=== PATIENT | male | born 1965 | race Caucasian/White ===

== ENCOUNTER 2018-12-27 18:08 | Emergency (ER) | payer OTHER ==
[~2018-12-27] VITALS: Ht 185.4 cm; Wt 81.2 kg
[~2018-12-27 18:08] MED LIST: ACID1TAB PO; APIX5TAB PO; CALC-694 PO; CEFD300C3 PO; CYAN10006 PO; DILT180C54 PO; DILT300C51 PO; DOXY100T2 PO; FEXO180T84 PO; FOLI0.4T2 PO; LEVO750T39 PO; MELA1TAB20 PO; METO-370 PO; MULT-517 PO; MULT-974 PO
--- OUTSIDE RECORDS SUMMARY | 2018-12-27 18:16 | XMS REPORT | Clinical Summary ---
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 If you do not see the information that you expected, contact Release of Information in the Health Information Management department at [phone] for further assistance in locating additional records.[facility] Allergies Comments Active Allergy Reactions Severity Noted Date Milk Containing Products DIARRHEA, High 03/07/2016 SHORTNESS OF BREATH, WHEEZING Sulfa (Sulfonamide UNKNOWN Low 03/01/2016 Antibiotics) Medications End Date Status Medication Sig Dispensed Refills Start Date Active calcium carbonate/vitamin Take 1 Tab by 0 D-3 (OSCAL-500+D) 1250 mouth daily. mg/200 unit tablet Calcium Carb 1250mg delivers 500mg elemental Ca Active fexofenadine(+) (IVONNE) Take 180 mg 0 180 mg tablet by mouth daily. Active folic acid 400 mcg tablet Take 400 mcg 0 by mouth daily. Active melatonin 10 mg tab Take 10 mg by 0 mouth at bedtime daily. Active PV W-O CJ/FERROUS Take 1 Tab by 0 FUMARATE/FA (M-VIT PO) mouth. Active metoprolol XL (TOPROL XL) Take 0.5 Tabs 90 Tab 3 50 mg tabletIndications: by mouth 6 Atrial flutter, daily. unspecified type (HCC) Active ALBUTEROL IN Inhale by 0 mouth into the lungs as Needed. Active Problems Problem Noted Date Atrial flutter 02/17/2016 Overview: 03/07/16 CTI ablation with termination of the flutter and bidirectional block (Dr. Garzon) Family History Medical History Relation Name Comments Cancer Father Stroke Maternal Grandmother Stroke Paternal Grandfather Relation Name Status Comments Father pancreatic cancer (Age 75) Maternal Grandfather Maternal Grandmother (Age 75) Mother Alive Paternal Grandfather (Age 84) Paternal Grandmother Social History Date Tobacco Use Types Packs/Day Years Used Never Smoker Smokeless Tobacco: Never Used Alcohol Use Drinks/Week oz/Week Comments No Sex Assigned at Date Recorded Not on file Industry Job Start Date Occupation Not on file Not on file Not on file Travel End Travel History Travel Start No recent travel history available. Last Filed Vital Signs Time Taken Vital Sign Reading 05/24/2016 7:28 AM CDT Blood Pressure 122/80 05/24/2016 7:28 AM CDT Pulse 59 03/08/2016 9:32 AM CDT Temperature 36.7 C (98.1 F) - Respiratory Rate - 03/08/2016 9:32 AM CDT Oxygen Saturation 99% - Inhaled Oxygen - Concentration 05/24/2016 7:28 AM CDT Weight 83.5 kg (184 lb) 05/24/2016 7:28 AM CDT Height 185.4 cm (6' 1") 05/24/2016 7:28 AM CDT Body Mass Index 24.28 Plan of Treatment Health Maintenance Due Date Last Done Comments PHYSICAL (COMPREHENSIVE) 1973 EXAM HIV SCREENING 1981 DTAP/TDAP VACCINES (1 - 01/02/1984 Tdap) COLORECTAL CANCER 01/02/2016 SCREENING SHINGLES RECOMBINANT 01/02/2016 VACCINE (1 of 2) INFLUENZA VACCINE 04/10/2019 Results Not on filefrom Last 3 Months Insurance Type Payer Benefit Subscriber ID Effective Phone Address Plan / Dates Group HMO AETNA AETNA xxxxxxxxx [id number] GENERIC resent Advance Directives Patient has advance care planning documents, and code status on file. For more information, please contact: [facility] [address] [place] [address] Date Inactivated Comments Code Status Date Activated 03/08/2016 11:46 AM Full Code 03/07/2016 7:33 AM Provider has discussed Code Status No, more discussion w/Patient or Family? needed
--- OUTSIDE RECORDS SUMMARY | 2018-12-27 18:17 | XMS REPORT | CCD ---
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 Name Role Phone PP Unavailable CCM Unavailable Summary Purpose Interface Exchange Insurance Providers Payer name Policy type / Coverage type Covered libertarian ID Effective Begin Date Effective End Date [employer] Commercial Insurance [id number] Unknown Family history Father Diagnosis Age At Onset Hypertension Unknown Hyperlipidemia Unknown Arthritis Unknown Coronary Artery Disease Unknown Social History Social History Element Codes Description Effective Dates Marital status Unknown Michelle 11/17/2015 Number of children Unknown 0 11/17/2015 Allergies, Adverse Reactions, Alerts Substance Reaction Codes Entered Date Inactivated Date Status SULFA (SULFONAMIDES) diarrhea Unknown 11/17/2015 No Inactive Date Active Past Medical History Illness Codes Condition Status Onset Date Resolved Date Encounter for general adult medical examination without abnormal findings ICD-9: V70.0 ICD-10: Z00.00 Active 11/16/2015 Unknown Paroxysmal atrial fibrillation ICD-9: 427.31 ICD-10: I48.0 Active 02/29/2016 Unknown Other acute sinusitis ICD-9: 461.8 ICD-10: J01.80 Active 05/22/2017 Unknown Other allergic rhinitis ICD-9: 477.8 ICD-10: J30.89 Active 05/22/2017 Unknown Acute laryngopharyngitis ICD-9: 465.0 ICD-10: J06.0 Active 11/30/2016 Unknown Other malaise ICD-9: 780.79 ICD-10: R53.81 Active 11/30/2016 Unknown Myalgia ICD-9: 729.1 ICD-10: M79.1 Active 02/15/2016 Unknown Other specified cardiac arrhythmias ICD-9: 427.89 ICD-10: I49.8 Active 02/15/2016 Unknown Palpitations ICD-9: 785.1 ICD-10: R00.2 Active 02/15/2016 Unknown Problems Condition Codes Effective Dates Condition Status Encounter for general adult medical examination without abnormal findings ICD-9: V70.0 ICD-10: Z00.00 11/16/2015 Active Paroxysmal atrial fibrillation ICD-9: 427.31 ICD-10: I48.0 02/29/2016 Active Other acute sinusitis ICD-9: 461.8 ICD-10: J01.80 05/22/2017 Active Other allergic rhinitis ICD-9: 477.8 ICD-10: J30.89 05/22/2017 Active Acute laryngopharyngitis ICD-9: 465.0 ICD-10: J06.0 11/30/2016 Active Other malaise ICD-9: 780.79 ICD-10: R53.81 11/30/2016 Active Myalgia ICD-9: 729.1 ICD-10: M79.1 02/15/2016 Active Other specified cardiac arrhythmias ICD-9: 427.89 ICD-10: I49.8 02/15/2016 Active Palpitations ICD-9: 785.1 ICD-10: R00.2 02/15/2016 Active Medications Medication Codes Instructions Start Date Stop Date Status Fill Instructions ProAir HFA 90 mcg/actuation aerosol inhaler RxNorm: 7707376 INHALE 2 PUFFS BY MOUTH EVERY 6 HOURS NEEDED 12/17/2018 06/14/2019 Active N O T I C E PRESCRIPTION PREVIOUSLY AUTHORIZED BY DOCTOR:ALAINA PETTY Levaquin 500 mg tablet RxNorm: 681905 1 Tablet(s) PO daily 08/201705/28/2017 Inactive Augmentin 500 mg-125 mg tablet RxNorm: 597796 1 Tablet(s) PO TID 11/30/2016 12/09/2016 Inactive Cartia XT 300 mg capsule,extended release RxNorm: 756624 1 Capsule(s) PO daily 03/02/2016 03/31/2016 Inactive prednisone 20 mg tablet RxNorm: 850583 3 Tablet(s) PO daily 05/201602/21/2016 Inactive Xarelto 20 mg tablet RxNorm: 3677694 1 Tablet(s) PO daily with the evening meal 02/17/2016 02/28/2016 Inactive prednisone 20 mg tablet RxNorm: 658343 3 Tablet(s) PO daily 05/201602/16/2016 Inactive Nexium 20 mg capsule,delayed release RxNorm: 273083 1 Capsule(s) PO BID 02/17/2016 03/17/2016 Inactive Nexium 20 mg capsule,delayed release RxNorm: 904495 1 Capsule(s) PO BID 02/17/2016 02/16/2016 Inactive Xarelto 20 mg tablet RxNorm: 0546160 1 Tablet(s) PO daily with the evening meal 02/17/2016 02/16/2016 Inactive ProAir HFA 90 mcg/actuation aerosol inhaler RxNorm: 7060322 INHALE 2 PUFFS BY MOUTH EVERY 6 HOURS NEEDED 04/27/2015 11/21/2016 Inactive N O T I C E PRESCRIPTION PREVIOUSLY AUTHORIZED BY DOCTOR:ALAINA PETTY ProAir HFA 90 mcg/actuation aerosol inhaler RxNorm: 9306701 1-2 Puff(s) INH Q4 PRN 04/27/2015 04/26/2015 Inactive Vitamin B-12 oral RxNorm: 42798 oral No Start Date Active folic acid oral RxNorm : 4511 oral No Start Date Active Men's Multi-Vitamin tablet RxNorm: 1 Tablet(s) PO daily No Start Date Active Calcium + Vitamin D oral RxNorm: 7080190 oral No Start Date Active Tiffany oral RxNorm: 649757 oral No Start Date Active melatonin oral RxNorm : 6711 oral No Start Date Active Levaquin 750 mg tablet RxNorm: 599577 1 Tablet(s) PO daily No Start Date 11/21/2016 Inactive metoprolol tartrate 50 mg tablet RxNorm: 593825 1 Tablet(s) PO daily No Start Date 11/21/2016 Inactive cefdinir 300 mg capsule RxNorm: 795245 1 Capsule(s) PO BID No Start Date 11/21/2016 Inactive Doxy 100 mg capsule RxNorm: 626880 oral No Start Date 11/21/2016 Inactive Eliquis 5 mg tablet RxNorm: 7899791 1 Tablet(s) PO BID No Start Date 11/21/2016 Inactive Medication Administered No Medication Administered data Immunizations Vaccine Codes Date Status Influenza CVX: 141 08/05/2018 completed SHINGARIX CVX: 121 04/15/2018 completed Zoster CVX: 121 12/07/2017 completed Influenza CVX: 141 03/10/2015 completed Assessments Condition Codes Effective Dates Encounter for general adult medical examination without abnormal findings ICD-10: Z00.00 ICD-9: V70.0 12/17/2018 Other acute sinusitis ICD-10: J01.80 ICD-9: 461.8 05/22/2017 Other allergic rhinitis ICD-10: J30.89 ICD-9: 477.8 05/22/2017 Other malaise ICD-10: R53.81 ICD-9: 780.79 11/30/2016 Acute laryngopharyngitis ICD-10: J06.0 ICD-9: 465.0 11/30/2016 Paroxysmal atrial fibrillation ICD-10: I48.0 ICD-9: 427.31 03/01/2016 Palpitations ICD-10: R00.2 ICD-9: 785.1 02/16/2016 Other specified cardiac arrhythmias ICD-10: I49.8 ICD-9: 427.89 02/16/2016 Myalgia ICD-10: M79.1 ICD-9: 729.1 02/16/2016 Reason For Visit Reason For Visit Effective Dates Notes well man exam (40-65 years) 12/17/2018 well man exam (40-65 years) 11/28/2017 sinus congestion 05/22/2017 sinus congestion 11/30/2016 well man exam (40-65 years) 11/22/2016 Hospital Follow Up 03/01/2016 palpitations 02/16/2016 mole check 11/17/2015 Results Observation Observation Code Item Item Code Result Date Comp Metabolic Mqt824 NA 140 mEq/L 12/17/2018 Comp Metabolic Kly788 K 4.4 mEq/L 12/17/2018 Comp Metabolic Fti829 CL 106 mEq/L 12/17/2018 Comp Metabolic Bef871 CO2 28.0 mEq/L 12/17/2018 Comp Metabolic Asb544 ANION GAP 10 12/17/2018 Comp Metabolic Pdy660 GLUCOSE 92 mg/dL 12/17/2018 Comp Metabolic Adl604 Creat 0.9 mg/dL 12/17/2018 Comp Metabolic Tim186 eGFR 90 ml/min/1.73m2 12/17/2018 Comp Metabolic Foi795 BUN 19 mg/dL 12/17/2018 Comp Metabolic Cba418 B/C Ratio 20.4 Ratio 12/17/2018 Comp Metabolic Xjn343 CALCIUM 9.7 mg/dL 12/17/2018 Comp Metabolic Srq376 ALK PHOS 61 U/L 12/17/2018 Comp Metabolic Sfx651 AST(SGOT) 25 U/L 12/17/2018 Comp Metabolic Znp498 ALT(SGPT) 20 U/L 12/17/2018 Comp Metabolic Mcj531 BILI T 1.1 mg/dL 12/17/2018 Comp Metabolic Lyh016 ALBUMIN 4.3 g/dL 12/17/2018 Comp Metabolic Orr493 TPRO 6.7 g/dL 12/17/2018 Comp Metabolic Fkj036 GLOB 2.4 g/dL 12/17/2018 Comp Metabolic Ybr243 A/G Ratio 1.8 Ratio 12/17/2018 Comp Metabolic Drz883 Osmo 281 mOsmo 12/17/2018 Lipid Ord30 CHOL 215 mg/dL 12/17/2018 Lipid Ord30 HDL 64.0 mg/dl 12/17/2018 Lipid Ord30 TRIG 65 mg/dL 12/17/2018 Lipid Ord30 LDL 138 mg/dL 12/17/2018 Lipid Ord30 C/HDL 3.4 Ratio 12/17/2018 Cbc With Differential Ord2 WBC 4.45 K/ul 12/17/2018 Cbc With Differential Ord2 RBC 4.47 M/ul 12/17/2018 Cbc With Differential Ord2 HGB 13.8 g/dl 12/17/2018 Cbc With Differential Ord2 HCT 40.8 % 12/17/2018 Cbc With Differential Ord2 Neut% 56.2 % 12/17/2018 Cbc With Differential Ord2 MCV 91.3 fl 12/17/2018 Cbc With Differential Ord2 Lymph% 32.6 % 12/17/2018 Cbc With Differential Ord2 MCH 30.9 pg 12/17/2018 Cbc With Differential Ord2 Mayes% 7.4 % 12/17/2018 Cbc With Differential Ord2 MCHC 33.8 pg 12/17/2018 Cbc With Differential Ord2 Eos% 2.9 % 12/17/2018 Cbc With Differential Ord2 Baso% 0.9 % 12/17/2018 Cbc With Differential Ord2 PLT 261 K/ul 12/17/2018 Cbc With Differential Ord2 RDW 13.2 % 12/17/2018 Cbc With Differential Ord2 Neut ABS# 2.50 K/ul 12/17/2018 Cbc With Differential Ord2 Lymph ABS# 1.45 K/ul 12/17/2018 Cbc With Differential Ord2 Mayes ABS# 0.3 K/ul 12/17/2018 Cbc With Differential Ord2 Eos ABS# 0.1 K/ul 12/17/2018 Cbc With Differential Ord2 Baso ABS# 0.0 K/ul 12/17/2018 Tsh Ord6 TSH (3rd IS) 1.16 uIU/mL 12/17/2018 Lipid Ord30 CHOL 207 mg/dL 11/29/2017 Lipid Ord30 HDL 75.0 mg/dl 11/29/2017 Lipid Ord30 TRIG 56 mg/dL 11/29/2017 Lipid Ord30 LDL 121 mg/dL 11/29/2017 Lipid Ord30 C/HDL 2.8 Ratio 11/29/2017 Cbc With Differential Ord2 WBC 4.52 K/ul 11/29/2017 Cbc With Differential Ord2 RBC 4.42 M/ul 11/29/2017 Cbc With Differential Ord2 HGB 13.9 g/dl 11/29/2017 Cbc With Differential Ord2 HCT 40.1 % 11/29/2017 Cbc With Differential Ord2 Neut% 53.0 % 11/29/2017 Cbc With Differential Ord2 MCV 90.7 fl 11/29/2017 Cbc With Differential Ord2 Lymph% 36.1 % 11/29/2017 Cbc With Differential Ord2 MCH 31.4 pg 11/29/2017 Cbc With Differential Ord2 Mayes% 8.4 % 11/29/2017 Cbc With Differential Ord2 MCHC 34.7 pg 11/29/2017 Cbc With Differential Ord2 Eos% 1.8 % 11/29/2017 Cbc With Differential Ord2 PLT 230 K/ul 11/29/2017 Cbc With Differential Ord2 Baso% 0.7 % 11/29/2017 Cbc With Differential Ord2 RDW 12.9 % 11/29/2017 Cbc With Differential Ord2 Neut ABS# 2.40 K/ul 11/29/2017 Cbc With Differential Ord2 Lymph ABS# 1.63 K/ul 11/29/2017 Cbc With Differential Ord2 Mayes ABS# 0.4 K/ul 11/29/2017 Cbc With Differential Ord2 Eos ABS# 0.1 K/ul 11/29/2017 Cbc With Differential Ord2 Baso ABS# 0.0 K/ul 11/29/2017 Comp Metabolic Ufb746 NA 141 mEq/L 11/29/2017 Comp Metabolic Cec874 K 4.0 mEq/L 11/29/2017 Comp Metabolic Fhs058 CL 106 mEq/L 11/29/2017 Comp Metabolic Gcz492 CO2 26.0 mEq/L 11/29/2017 Comp Metabolic Fxo944 ANION GAP 13 11/29/2017 Comp Metabolic Fib155 GLUCOSE 79 mg/dL 11/29/2017 Comp Metabolic Vqp219 Creat 1.0 mg/dL 11/29/2017 Comp Metabolic Rgb568 eGFR 89 ml/min/1.73m2 11/29/2017 Comp Metabolic Nal330 BUN 20 mg/dL 11/29/2017 Comp Metabolic Emi940 B/C Ratio 21.1 Ratio 11/29/2017 Comp Metabolic Cnz844 CALCIUM 9.5 mg/dL 11/29/2017 Comp Metabolic Ubk270 ALK PHOS 67 U/L 11/29/2017 Comp Metabolic Znx544 AST(SGOT) 26 U/L 11/29/2017 Comp Metabolic Onk187 ALT(SGPT) 25 U/L 11/29/2017 Comp Metabolic Tlr817 BILI T 1.2 mg/dL 11/29/2017 Comp Metabolic Tug847 ALBUMIN 4.2 g/dL 11/29/2017 Comp Metabolic Qhu247 TPRO 6.7 g/dL 11/29/2017 Comp Metabolic Nsk899 GLOB 2.5 g/dL 11/29/2017 Comp Metabolic Ymu304 A/G Ratio 1.7 Ratio 11/29/2017 Comp Metabolic Mtw670 Osmo 283 mOsmo 11/29/2017 Tsh Ord6 TSH (3rd IS) 0.82 uIU/mL 11/29/2017 C A/B FLU [id number] Influenza A Scr Negative 11/30/2016 C A/B FLU [id number] Influenza B Scr Negative 11/30/2016 Hepatic Trj829 ALBUMIN 4.1 g/dL 04/04/2016 Hepatic Hds744 TPRO 6.7 g/dL 04/04/2016 Hepatic Yqe485 GLOB 2.6 g/dL 04/04/2016 Hepatic Ihu611 A/G Ratio 1.5 Ratio 04/04/2016 Hepatic Geb975 ALK PHOS 61 U/L 04/04/2016 Hepatic Lbr073 ALT(SGPT) 22 U/L 04/04/2016 Hepatic Gja137 AST(SGOT) 21 U/L 04/04/2016 Hepatic Hcl505 BILI T 0.9 mg/dL 04/04/2016 Hepatic Akl744 BILI D 0.2 mg/dL 04/04/2016 Hepatic Dqu929 BILI I 0.7 mg/dL 04/04/2016 Cbc With Differential Ord2 WBC 3.19 K/ul 04/04/2016 Cbc With Differential Ord2 RBC 4.41 M/ul 04/04/2016 Cbc With Differential Ord2 HGB 13.8 g/dl 04/04/2016 Cbc With Differential Ord2 HCT 39.5 % 04/04/2016 Cbc With Differential Ord2 Neut% 41.0 % 04/04/2016 Cbc With Differential Ord2 MCV 89.6 fl 04/04/2016 Cbc With Differential Ord2 Lymph% 46.1 % 04/04/2016 Cbc With Differential Ord2 MCH 31.3 pg 04/04/2016 Cbc With Differential Ord2 Mayes% 8.5 % 04/04/2016 Cbc With Differential Ord2 MCHC 34.9 pg 04/04/2016 Cbc With Differential Ord2 Eos% 3.1 % 04/04/2016 Cbc With Differential Ord2 PLT 260 K/ul 04/04/2016 Cbc With Differential Ord2 Baso% 1.3 % 04/04/2016 Cbc With Differential Ord2 RDW 13.6 % 04/04/2016 Cbc With Differential Ord2 Neut ABS# 1.31 K/ul 04/04/2016 Cbc With Differential Ord2 Lymph ABS# 1.47 K/ul 04/04/2016 Cbc With Differential Ord2 Mayes ABS# 0.3 K/ul 04/04/2016 Cbc With Differential Ord2 Eos ABS# 0.1 K/ul 04/04/2016 Cbc With Differential Ord2 Baso ABS# 0.0 K/ul 04/04/2016 Cbc With Differential Ord2 WBC 4.40 K/ul 03/01/2016 Cbc With Differential Ord2 RBC 4.14 M/ul 03/01/2016 Cbc With Differential Ord2 HGB 12.7 g/dl 03/01/2016 Cbc With Differential Ord2 HCT 38.0 % 03/01/2016 Cbc With Differential Ord2 Neut% 52.7 % 03/01/2016 Cbc With Differential Ord2 MCV 91.8 fl 03/01/2016 Cbc With Differential Ord2 Lymph% 34.1 % 03/01/2016 Cbc With Differential Ord2 MCH 30.7 pg 03/01/2016 Cbc With Differential Ord2 Mayes% 9.3 % 03/01/2016 Cbc With Differential Ord2 MCHC 33.4 pg 03/01/2016 Cbc With Differential Ord2 Eos% 2.5 % 03/01/2016 Cbc With Differential Ord2 PLT 694 Result Verified By Repeat Analysis K/ul 03/01/2016 Cbc With Differential Ord2 Baso% 1.4 % 03/01/2016 Cbc With Differential Ord2 RDW 13.4 % 03/01/2016 Cbc With Differential Ord2 Neut ABS# 2.32 K/ul 03/01/2016 Cbc With Differential Ord2 Lymph ABS# 1.50 K/ul 03/01/2016 Cbc With Differential Ord2 Mayes ABS# 0.4 K/ul 03/01/2016 Cbc With Differential Ord2 Eos ABS# 0.1 K/ul 03/01/2016 Cbc With Differential Ord2 Baso ABS# 0.1 K/ul 03/01/2016 Metabolic Ord15 NA 137 mEq/L 03/01/2016 Metabolic Ord15 K 5.1 mEq/L 03/01/2016 Metabolic Ord15 CL 106 mEq/L 03/01/2016 Metabolic Ord15 CO2 26.0 mEq/L 03/01/2016 Metabolic Ord15 GLUCOSE 82 mg/dL 03/01/2016 Metabolic Ord15 BUN 21 mg/dL 03/01/2016 Metabolic Ord15 Creat 0.9 mg/dL 03/01/2016 Metabolic Ord15 B/C Ratio 22.6 Ratio 03/01/2016 Metabolic Ord15 eGFR 91 ml/min/1.73m2 03/01/2016 Metabolic Ord15 Osmo 276 mOsmo 03/01/2016 Metabolic Ord15 ANION GAP 10 03/01/2016 Metabolic Ord15 CALCIUM 9.1 mg/dL 03/01/2016 Magnesium Ord90 Mag 2.1 mg/dL 03/01/2016 Manual Differential Ord52 D-Neutr 62 % 03/01/2016 Manual Differential Ord52 D-Bands 2 % 03/01/2016 Manual Differential Ord52 D-Lymph 27 % 03/01/2016 Manual Differential Ord52 D-Mayes 7 % 03/01/2016 Manual Differential Ord52 D-Eos 2 % 03/01/2016 Manual Differential Ord52 D-1 Plt Increased 03/01/2016 Review of Systems System Result Effective Dates Constitutional No recent illness 2018 Constitutional No chills 12/17/2018 Constitutional No fatigue 12/17/2018 Constitutional No fever 12/17/2018 Constitutional No insomnia 12/17/2018 Constitutional No malaise 12/17/2018 Eyes No blindness 12/17/2018 Eyes No vision change 12/17/2018 Ears/Nose/Throat/Neck No dental pain 05/2019 Ears/Nose/Throat/Neck No dizziness 2018 Ears/Nose/Throat/Neck No dysphagia 2018 Ears/Nose/Throat/Neck No headache 2018 Ears/Nose/Throat/Neck No hearing loss 05/2019 Ears/Nose/Throat/Neck No nasal allergies 12/17/2018 Ears/Nose/Throat/Neck No sore throat 05/2019 Ears/Nose/Throat/Neck No postnasal drip 12/17/2018 Ears/Nose/Throat/Neck No sinus congestion 12/17/2018 Cardiovascular No chest pain/pressure 05/2019 Cardiovascular No dyspnea 12/17/2018 Cardiovascular No edema 12/17/2018 Cardiovascular No exercise intolerance Cardiovascular No fatigue 12/17/2018 Cardiovascular No near-syncope/dizziness 12/17/2018 Respiratory No chest tightness 2018 Respiratory No cough 12/17/2018 Respiratory No dyspnea 12/17/2018 Respiratory No pedal edema 12/17/2018 Gastrointestinal No abdominal pain 2018 Gastrointestinal No constipation 2018 Gastrointestinal No diarrhea 12/17/2018 Gastrointestinal No gastroesophageal reflux 12/17/2018 Gastrointestinal No nausea 12/17/2018 Gastrointestinal No vomiting 12/17/2018 Genitourinary/Nephrology No dysuria 12/17 Genitourinary/Nephrology No nocturia 05/2019 Genitourinary/Nephrology No urinary incontinence 12/17/2018 Musculoskeletal stiffness 12/17/2018 Musculoskeletal No swelling 12/17/2018 Musculoskeletal No muscle weakness 2018 Musculoskeletal No myalgias 12/17/2018 Dermatologic No rash 12/17/2018 Dermatologic No sores 12/17/2018 Dermatologic No scar 12/17/2018 Neurologic No dizziness 12/17/2018 Neurologic No headache 12/17/2018 Neurologic No neck pain 12/17/2018 Neurologic No syncope 12/17/2018 Psychiatric No anxiety 12/17/2018 Psychiatric No depression 12/17/2018 Constitutional No recent illness 2017 Constitutional No chills 11/28/2017 Constitutional No fatigue 11/28/2017 Constitutional No fever 11/28/2017 Constitutional No insomnia 11/28/2017 Constitutional No malaise 11/28/2017 Eyes No blindness 11/28/2017 Eyes No vision change 11/28/2017 Ears/Nose/Throat/Neck No dental pain Ears/Nose/Throat/Neck No dizziness 2017 Ears/Nose/Throat/Neck No dysphagia 2017 Ears/Nose/Throat/Neck No headache 2017 Ears/Nose/Throat/Neck No hearing loss Ears/Nose/Throat/Neck No nasal allergies 11/28/2017 Ears/Nose/Throat/Neck No sore throat Ears/Nose/Throat/Neck No postnasal drip 11/28/2017 Ears/Nose/Throat/Neck No sinus congestion 11/28/2017 Cardiovascular No chest pain/pressure Cardiovascular No dyspnea 11/28/2017 Cardiovascular No edema 11/28/2017 Cardiovascular No exercise intolerance Cardiovascular No fatigue 11/28/2017 Cardiovascular No near-syncope/dizziness 11/28/2017 Respiratory No chest tightness 2017 Respiratory No cough 11/28/2017 Respiratory No dyspnea 11/28/2017 Respiratory No pedal edema 11/28/2017 Gastrointestinal No abdominal pain 2017 Gastrointestinal No constipation 2017 Gastrointestinal No diarrhea 11/28/2017 Gastrointestinal No gastroesophageal reflux 11/28/2017 Gastrointestinal No nausea 11/28/2017 Gastrointestinal No vomiting 11/28/2017 Genitourinary/Nephrology No dysuria 11/28 Genitourinary/Nephrology No nocturia Genitourinary/Nephrology No urinary incontinence 11/28/2017 Musculoskeletal stiffness 11/28/2017 Musculoskeletal No swelling 11/28/2017 Musculoskeletal No muscle weakness 2017 Musculoskeletal No myalgias 11/28/2017 Dermatologic No rash 11/28/2017 Dermatologic No sores 11/28/2017 Dermatologic No scar 11/28/2017 Neurologic No dizziness 11/28/2017 Neurologic No headache 11/28/2017 Neurologic No neck pain 11/28/2017 Neurologic No syncope 11/28/2017 Psychiatric No anxiety 11/28/2017 Psychiatric No depression 11/28/2017 Constitutional recent illness 05/22/2017 Constitutional No chills 05/22/2017 Constitutional No diaphoresis 05/22/2017 Constitutional No fever 05/22/2017 Eyes No eye erythema 05/22/2017 Ears/Nose/Throat/Neck nasal allergies 08/2017 Ears/Nose/Throat/Neck nasal discharge 08/2017 Ears/Nose/Throat/Neck postnasal drip 08/2017 Ears/Nose/Throat/Neck sinus congestion Cardiovascular No chest pain/pressure 08/2017 Cardiovascular No dyspnea 05/22/2017 Respiratory No chest congestion 2016 Respiratory cough 05/22/2017 Respiratory No dyspnea 05/22/2017 Gastrointestinal No abdominal pain 2016 Gastrointestinal No constipation 2016 Gastrointestinal No diarrhea 05/22/2017 Gastrointestinal No nausea 05/22/2017 Gastrointestinal No vomiting 05/22/2017 Dermatologic No rash 05/22/2017 Neurologic No alteration of consciousness 05/22/2017 Neurologic No mental status change 2016 Ears/Nose/Throat/Neck No sore throat 08/2017 Constitutional recent illness 11/30/2016 Constitutional No chills 11/30/2016 Constitutional No diaphoresis 11/30/2016 Eyes No eye erythema 11/30/2016 Ears/Nose/Throat/Neck nasal allergies Ears/Nose/Throat/Neck nasal discharge Ears/Nose/Throat/Neck postnasal drip Cardiovascular No chest pain/pressure Cardiovascular No dyspnea 11/30/2016 Respiratory chest congestion 11/30/2016 Respiratory cough 11/30/2016 Respiratory No dyspnea 11/30/2016 Gastrointestinal No constipation 2016 Gastrointestinal No diarrhea 11/30/2016 Gastrointestinal No nausea 11/30/2016 Gastrointestinal No vomiting 11/30/2016 Dermatologic No rash 11/30/2016 Neurologic No alteration of consciousness 11/30/2016 Neurologic No mental status change 2016 Constitutional No fever 11/30/2016 Ears/Nose/Throat/Neck otalgia 11/30/2016 Constitutional malaise 11/30/2016 Respiratory productive sputum 11/30/2016 Constitutional No recent illness 2016 Constitutional No chills 11/22/2016 Constitutional No fatigue 11/22/2016 Constitutional No fever 11/22/2016 Constitutional No insomnia 11/22/2016 Constitutional No malaise 11/22/2016 Eyes No blindness 11/22/2016 Eyes No vision change 11/22/2016 Ears/Nose/Throat/Neck No dental pain Ears/Nose/Throat/Neck No dizziness 2016 Ears/Nose/Throat/Neck No dysphagia 2016 Ears/Nose/Throat/Neck No headache 2016 Ears/Nose/Throat/Neck No hearing loss Ears/Nose/Throat/Neck No nasal allergies 11/22/2016 Ears/Nose/Throat/Neck No sore throat Ears/Nose/Throat/Neck No postnasal drip 11/22/2016 Ears/Nose/Throat/Neck No sinus congestion 11/22/2016 Cardiovascular No chest pain/pressure Cardiovascular No dyspnea 11/22/2016 Cardiovascular No edema 11/22/2016 Cardiovascular No exercise intolerance Cardiovascular No fatigue 11/22/2016 Cardiovascular No near-syncope/dizziness 11/22/2016 Respiratory No chest tightness 2016 Respiratory No cough 11/22/2016 Respiratory No dyspnea 11/22/2016 Respiratory No pedal edema 11/22/2016 Gastrointestinal No abdominal pain 2016 Gastrointestinal No constipation 2016 Gastrointestinal No diarrhea 11/22/2016 Gastrointestinal No gastroesophageal reflux 11/22/2016 Gastrointestinal No nausea 11/22/2016 Gastrointestinal No vomiting 11/22/2016 Genitourinary/Nephrology No dysuria 11/22 Genitourinary/Nephrology No nocturia Genitourinary/Nephrology No urinary incontinence 11/22/2016 Musculoskeletal No stiffness 11/22/2016 Musculoskeletal No swelling 11/22/2016 Musculoskeletal No muscle weakness 2016 Musculoskeletal No myalgias 11/22/2016 Dermatologic No rash 11/22/2016 Dermatologic No sores 11/22/2016 Dermatologic No scar 11/22/2016 Neurologic No dizziness 11/22/2016 Neurologic No headache 11/22/2016 Neurologic No neck pain 11/22/2016 Neurologic No syncope 11/22/2016 Psychiatric No anxiety 11/22/2016 Psychiatric No depression 11/22/2016 Constitutional No chills 03/01/2016 Constitutional fatigue 03/01/2016 Constitutional No fever 03/01/2016 Constitutional No insomnia 03/01/2016 Eyes No eye erythema 03/01/2016 Eyes No vision change 03/01/2016 Ears/Nose/Throat/Neck No nasal allergies 03/01/2016 Ears/Nose/Throat/Neck No nasal discharge 03/01/2016 Ears/Nose/Throat/Neck No postnasal drip 03/01/2016 Ears/Nose/Throat/Neck No sinus congestion 03/01/2016 Ears/Nose/Throat/Neck No sore throat Cardiovascular No chest pain/pressure Cardiovascular No dyspnea 03/01/2016 Cardiovascular No edema 03/01/2016 Respiratory No chest congestion 2015 Respiratory No cough 03/01/2016 Respiratory No dyspnea 03/01/2016 Gastrointestinal No nausea 03/01/2016 Gastrointestinal No vomiting 03/01/2016 Musculoskeletal No joint complaint 2015 Dermatologic No rash 03/01/2016 Dermatologic No scar 03/01/2016 Neurologic No alteration of consciousness 03/01/2016 Neurologic No mental status change 2015 Psychiatric No anxiety 03/01/2016 Psychiatric No depression 03/01/2016 Cardiovascular arrhythmia 03/01/2016 Constitutional No chills 02/16/2016 Constitutional fatigue 02/16/2016 Constitutional No fever 02/16/2016 Constitutional No insomnia 02/16/2016 Constitutional malaise 02/16/2016 Eyes No eye erythema 02/16/2016 Eyes No vision change 02/16/2016 Ears/Nose/Throat/Neck No headache 2015 Ears/Nose/Throat/Neck No nasal allergies 02/16/2016 Ears/Nose/Throat/Neck No sore throat 04/2016 Ears/Nose/Throat/Neck No postnasal drip 02/16/2016 Ears/Nose/Throat/Neck No sinus congestion 02/16/2016 Cardiovascular No chest pain/pressure 04/2016 Cardiovascular No dyspnea 02/16/2016 Cardiovascular No edema 02/16/2016 Respiratory No cough 02/16/2016 Respiratory No dyspnea 02/16/2016 Respiratory No pedal edema 02/16/2016 Gastrointestinal No nausea 02/16/2016 Gastrointestinal No vomiting 02/16/2016 Dermatologic No rash 02/16/2016 Dermatologic No scar 02/16/2016 Psychiatric No anxiety 02/16/2016 Psychiatric No depression 02/16/2016 Ears/Nose/Throat/Neck No nasal discharge 02/16/2016 Cardiovascular palpitations 02/16/2016 Cardiovascular arrhythmia 02/16/2016 Respiratory No chest congestion 2015 Respiratory No productive sputum 2015 Musculoskeletal myalgias 02/16/2016 Musculoskeletal No joint complaint 2015 Neurologic No alteration of consciousness 02/16/2016 Neurologic No mental status change 2015 Constitutional No recent illness 2015 Constitutional No chills 11/17/2015 Constitutional No fatigue 11/17/2015 Constitutional No fever 11/17/2015 Constitutional No insomnia 11/17/2015 Constitutional No malaise 11/17/2015 Eyes No blindness 11/17/2015 Eyes No vision change 11/17/2015 Ears/Nose/Throat/Neck No dental pain 05/2016 Ears/Nose/Throat/Neck No dizziness 2015 Ears/Nose/Throat/Neck No dysphagia 2015 Ears/Nose/Throat/Neck No headache 2015 Ears/Nose/Throat/Neck No hearing loss 05/2016 Ears/Nose/Throat/Neck No nasal allergies 11/17/2015 Ears/Nose/Throat/Neck No sore throat 05/2016 Ears/Nose/Throat/Neck No postnasal drip 11/17/2015 Ears/Nose/Throat/Neck No sinus congestion 11/17/2015 Cardiovascular No chest pain/pressure 05/2016 Cardiovascular No dyspnea 11/17/2015 Cardiovascular No edema 11/17/2015 Cardiovascular No exercise intolerance Cardiovascular No fatigue 11/17/2015 Cardiovascular No near-syncope/dizziness 11/17/2015 Respiratory No chest tightness 2015 Respiratory No cough 11/17/2015 Respiratory No dyspnea 11/17/2015 Respiratory No pedal edema 11/17/2015 Gastrointestinal No abdominal pain 2015 Gastrointestinal No constipation 2015 Gastrointestinal No diarrhea 11/17/2015 Gastrointestinal No gastroesophageal reflux 11/17/2015 Gastrointestinal No nausea 11/17/2015 Gastrointestinal No vomiting 11/17/2015 Genitourinary/Nephrology No dysuria 11/16 Genitourinary/Nephrology No nocturia 05/2016 Genitourinary/Nephrology No urinary incontinence 11/17/2015 Musculoskeletal No stiffness 11/17/2015 Musculoskeletal No swelling 11/17/2015 Musculoskeletal No muscle weakness 2015 Musculoskeletal No myalgias 11/17/2015 Dermatologic No rash 11/17/2015 Dermatologic No sores 11/17/2015 Dermatologic No scar 11/17/2015 Neurologic No dizziness 11/17/2015 Neurologic No headache 11/17/2015 Neurologic No neck pain 11/17/2015 Neurologic No syncope 11/17/2015 Psychiatric No anxiety 11/17/2015 Psychiatric No depression 11/17/2015 Physical Exam Exam Name System Name Item Name Status Result Effective Dates Notes Full Exam - General 1994 Constitutional general appearance Development: well developed 12/17/2018 None Full Exam - General 1994 Constitutional general appearance Development: appears stated age 0412/17/2018 None Full Exam - General 1994 Constitutional general appearance Hygiene/Attention to Grooming: good hygiene 12/17/2018 None Full Exam - General 1994 Eyes conjunctiva /eyelids Overall: conjunctiva clear 12/17/2018 None Full Exam - General 1994 Eyes conjunctiva /eyelids Overall: cornea clear 12/17/2018 None Full Exam - General 1994 Eyes conjunctiva /eyelids Overall: eyelids normal 12/17/2018 None Full Exam - General 1994 Eyes pupils and irises Overall: pupils equal, round, reactive to light and accomodation 12/17/2018 None Full Exam - General 1994 Ears/Nose/Throat otoscopic exam Overall: external auditory canals clear 12/17/2018 None Full Exam - General 1994 Ears/Nose/Throat otoscopic exam Overall: tympanic membranes clear 12/17/2018 None Full Exam - General 1994 Ears/Nose/Throat lips/teeth/gingiva Overall: benign lips 12/17/2018 None Full Exam - General 1994 Ears/Nose/Throat lips/teeth/gingiva Overall: normal dentition 12/17/2018 None Full Exam - General 1994 Ears/Nose/Throat oral cavity/pharynx/larynx Overall: oral mucosa clear 12/17/2018 None Full Exam - General 1994 Ears/Nose/Throat oral cavity/pharynx/larynx Overall: oropharyngeal mucosa clear 12/17/2018 None Full Exam - General 1994 Ears/Nose/Throat oral cavity/pharynx/larynx Overall: hypopharynx benign 12/17/2018 None Full Exam - General 1994 Ears/Nose/Throat oral cavity/pharynx/larynx Overall: no masses 12/17/2018 None Full Exam - General 1994 Respiratory auscultation Overall: breath sounds clear bilaterally 12/17/2018 None Full Exam - General 1994 Respiratory respiratory effort/rhythm Overall: no retractions 12/17/2018 None Full Exam - General 1994 Respiratory respiratory effort/rhythm Overall: normal rate 12/17/2018 None Full Exam - General 1994 Cardiovascular extremities Overall: no clubbing 12/17/2018 None Full Exam - General 1994 Cardiovascular auscultation of heart Overall: regular rate 12/17/2018 None Full Exam - General 1994 Cardiovascular auscultation of heart Overall: normal heart sounds 12/17/2018 None Full Exam - General 1994 Abdomen abdominal exam Overall: no tenderness 12/17/2018 None Full Exam - General 1994 Abdomen abdominal exam Overall: normal bowel sounds 12/17/2018 None Full Exam - General 1994 Lymphatic neck nodes Overall: anterior cervical chain benign 12/17/2018 None Full Exam - General 1994 Lymphatic neck nodes Overall: posterior cervical chain benign 12/17/2018 None Full Exam - General 1994 Musculoskeletal spine, ribs and pelvis Overall: spine benign 12/17/2018 None Full Exam - General 1994 Musculoskeletal spine, ribs and pelvis Overall: sacroiliac joint benign 12/17/2018 None Full Exam - General 1994 Musculoskeletal spine, ribs and pelvis Overall: good posture 12/17/2018 None Full Exam - General 1994 Musculoskeletal head and neck Overall: head atraumatic 12/17/2018 None Full Exam - General 1994 Musculoskeletal head and neck Overall: cervical spine benign 12/17/2018 None Full Exam - General 1994 Integument inspection of skin Pigmentation: hyperpigmentation 12/17/2018 small 0.5 x 0.3 cm lesion on inner part of foot near calcaneous on right Full Exam - General 1994 Neurologic deep tendon reflexes Overall: deep tendon reflexes intact 12/17/2018 None Full Exam - General 1994 Neurologic cranial nerves Overall: crainial nerves 2 - 12 grossly intact 12/17/2018 None Full Exam - General 1994 Psychiatric orientation/consciousness Overall: oriented to person, place and time 12/17/2018 None Full Exam - General 1994 Psychiatric mood and affect Overall: normal mood and affect 12/17/2018 None Full Exam - General 1994 Constitutional general appearance Development: well developed 11/28/2017 None Full Exam - General 1994 Constitutional general appearance Development: appears stated age 0311/28/2017 None Full Exam - General 1994 Constitutional general appearance Hygiene/Attention to Grooming: good hygiene 11/28/2017 None Full Exam - General 1994 Eyes conjunctiva /eyelids Overall: conjunctiva clear 11/28/2017 None Full Exam - General 1994 Eyes conjunctiva /eyelids Overall: cornea clear 11/28/2017 None Full Exam - General 1994 Eyes conjunctiva /eyelids Overall: eyelids normal 11/28/2017 None Full Exam - General 1994 Eyes pupils and irises Overall: pupils equal, round, reactive to light and accomodation 11/28/2017 None Full Exam - General 1994 Ears/Nose/Throat otoscopic exam Overall: external auditory canals clear 11/28/2017 None Full Exam - General 1994 Ears/Nose/Throat otoscopic exam Overall: tympanic membranes clear 11/28/2017 None Full Exam - General 1994 Ears/Nose/Throat lips/teeth/gingiva Overall: benign lips 11/28/2017 None Full Exam - General 1994 Ears/Nose/Throat lips/teeth/gingiva Overall: normal dentition 11/28/2017 None Full Exam - General 1994 Ears/Nose/Throat oral cavity/pharynx/larynx Overall: oral mucosa clear 11/28/2017 None Full Exam - General 1994 Ears/Nose/Throat oral cavity/pharynx/larynx Overall: oropharyngeal mucosa clear 11/28/2017 None Full Exam - General 1994 Ears/Nose/Throat oral cavity/pharynx/larynx Overall: hypopharynx benign 11/28/2017 None Full Exam - General 1994 Ears/Nose/Throat oral cavity/pharynx/larynx Overall: no masses 11/28/2017 None Full Exam - General 1994 Respiratory auscultation Overall: breath sounds clear bilaterally 11/28/2017 None Full Exam - General 1994 Respiratory respiratory effort/rhythm Overall: no retractions 11/28/2017 None Full Exam - General 1994 Respiratory respiratory effort/rhythm Overall: normal rate 11/28/2017 None Full Exam - General 1994 Cardiovascular extremities Overall: no clubbing 11/28/2017 None Full Exam - General 1994 Cardiovascular auscultation of heart Overall: regular rate 11/28/2017 None Full Exam - General 1994 Cardiovascular auscultation of heart Overall: normal heart sounds 11/28/2017 None Full Exam - General 1994 Abdomen abdominal exam Overall: no tenderness 11/28/2017 None Full Exam - General 1994 Abdomen abdominal exam Overall: normal bowel sounds 11/28/2017 None Full Exam - General 1994 Lymphatic neck nodes Overall: anterior cervical chain benign 11/28/2017 None Full Exam - General 1994 Lymphatic neck nodes Overall: posterior cervical chain benign 11/28/2017 None Full Exam - General 1994 Musculoskeletal spine, ribs and pelvis Overall: spine benign 11/28/2017 None Full Exam - General 1994 Musculoskeletal spine, ribs and pelvis Overall: sacroiliac joint benign 11/28/2017 None Full Exam - General 1994 Musculoskeletal spine, ribs and pelvis Overall: good posture 11/28/2017 None Full Exam - General 1994 Musculoskeletal head and neck Overall: head atraumatic 11/28/2017 None Full Exam - General 1994 Musculoskeletal head and neck Overall: cervical spine benign 11/28/2017 None Full Exam - General 1994 Integument inspection of skin Pigmentation: hyperpigmentation 11/28/2017 small 0.5 x 0.3 cm lesion on inner part of foot near calcaneous on right Full Exam - General 1994 Neurologic deep tendon reflexes Overall: deep tendon reflexes intact 11/28/2017 None Full Exam - General 1994 Neurologic cranial nerves Overall: crainial nerves 2 - 12 grossly intact 11/28/2017 None Full Exam - General 1994 Psychiatric orientation/consciousness Overall: oriented to person, place and time 11/28/2017 None Full Exam - General 1994 Psychiatric mood and affect Overall: normal mood and affect 11/28/2017 None Full Exam - ENT Constitutional general appearance Overall: well nourished 05/22/2017 None Full Exam - ENT Constitutional general appearance Overall: well developed 05/22/2017 None Full Exam - ENT Constitutional general appearance Overall: in no acute distress 05/22/2017 None Full Exam - ENT Ears/Nose/Throat otoscopic exam Overall: external auditory canals normal 05/22/2017 None Full Exam - ENT Ears/Nose/Throat otoscopic exam Left tympanic membrane: air -fluid level 05/22/2017 None Full Exam - ENT Ears/Nose/Throat otoscopic exam Right tympanic membrane: air-fluid level 05/22/2017 None Full Exam - ENT Ears/Nose/Throat nasal mucosa, septum, turbinates Drainage: clear 05/22/2017 None Full Exam - ENT Ears/Nose/Throat nasal mucosa, septum, turbinates Drainage: yellow 05/22/2017 None Full Exam - ENT Ears/Nose/Throat lips/ teeth/gingiva Overall: benign lips 05/22/2017 None Full Exam - ENT Ears/Nose/Throat oropharynx Posterior Pharynx: clear post nasal drainage 05/22/2017 None Full Exam - ENT Face and Head palpation Left maxillary sinus: tender 05/22/2017 None Full Exam - ENT Face and Head palpation Right maxillary sinus: tender 05/22/2017 None Full Exam - ENT Respiratory inspection Overall: no retractions 05/22/2017 None Full Exam - ENT Respiratory inspection Overall: normal rate 08/2017 None Full Exam - ENT Respiratory auscultation Overall: breath sounds clear bilaterally 05/22/2017 None Full Exam - ENT Cardiovascular auscultation of heart Overall: regular rate 05/22/2017 None Full Exam - ENT Cardiovascular auscultation of heart Overall: normal heart sounds 05/22/2017 None Full Exam - ENT Lymphatic palpation of lymph nodes Overall: anterior cervical chain benign 05/22/2017 None Full Exam - ENT Lymphatic palpation of lymph nodes Overall: posterior cervical chain benign 05/22/2017 None Full Exam - ENT Neurologic mood and affect Overall: normal mood 05/22/2017 None Full Exam - ENT Neurologic mood and affect Overall: normal affect 05/22/2017 None Full Exam - ENT Neurologic orientation Overall: oriented to person, place and time 05/22/2017 None Full Exam - ENT Constitutional general appearance Overall: well nourished 11/30/2016 None Full Exam - ENT Constitutional general appearance Overall: well developed 11/30/2016 None Full Exam - ENT Constitutional general appearance Overall: in no acute distress 11/30/2016 None Full Exam - ENT Ears/Nose/Throat otoscopic exam Overall: external auditory canals normal 11/30/2016 None Full Exam - ENT Ears/Nose/Throat otoscopic exam Left tympanic membrane: air -fluid level 11/30/2016 None Full Exam - ENT Ears/Nose/Throat otoscopic exam Right tympanic membrane: air-fluid level 11/30/2016 None Full Exam - ENT Ears/Nose/Throat lips/ teeth/gingiva Overall: benign lips 11/30/2016 None Full Exam - ENT Ears/Nose/Throat oropharynx Overall: oral mucosa clear 11/30/2016 None Full Exam - ENT Ears/Nose/Throat oropharynx Posterior Pharynx: clear post nasal drainage 11/30/2016 None Full Exam - ENT Ears/Nose/Throat oropharynx Posterior Pharynx: erythema 11/30/2016 None Full Exam - ENT Respiratory inspection Overall: no retractions 11/30/2016 None Full Exam - ENT Respiratory inspection Overall: normal rate None Full Exam - ENT Respiratory auscultation Overall: breath sounds clear bilaterally 11/30/2016 None Full Exam - ENT Cardiovascular auscultation of heart Rate: normal rate 11/30/2016 None Full Exam - ENT Lymphatic palpation of lymph nodes Overall: anterior cervical chain benign 11/30/2016 None Full Exam - ENT Lymphatic palpation of lymph nodes Overall: posterior cervical chain benign 11/30/2016 None Full Exam - ENT Neurologic mood and affect Overall: normal mood 11/30/2016 None Full Exam - ENT Neurologic mood and affect Overall: normal affect 11/30/2016 None Full Exam - ENT Neurologic orientation Overall: oriented to person, place and time 11/30/2016 None Full Exam - ENT Cardiovascular auscultation of heart Overall: normal heart sounds 11/30/2016 None Full Exam - General 1994 Constitutional general appearance Development: well developed 11/22/2016 None Full Exam - General 1994 Constitutional general appearance Development: appears stated age 0311/22/2016 None Full Exam - General 1994 Constitutional general appearance Hygiene/Attention to Grooming: good hygiene 11/22/2016 None Full Exam - General 1994 Eyes conjunctiva /eyelids Overall: conjunctiva clear 11/22/2016 None Full Exam - General 1994 Eyes conjunctiva /eyelids Overall: cornea clear 11/22/2016 None Full Exam - General 1994 Eyes conjunctiva /eyelids Overall: eyelids normal 11/22/2016 None Full Exam - General 1994 Eyes pupils and irises Overall: pupils equal, round, reactive to light and accomodation 11/22/2016 None Full Exam - General 1994 Ears/Nose/Throat otoscopic exam Overall: external auditory canals clear 11/22/2016 None Full Exam - General 1994 Ears/Nose/Throat otoscopic exam Overall: tympanic membranes clear 11/22/2016 None Full Exam - General 1994 Ears/Nose/Throat lips/teeth/gingiva Overall: benign lips 11/22/2016 None Full Exam - General 1994 Ears/Nose/Throat lips/teeth/gingiva Overall: normal dentition 11/22/2016 None Full Exam - General 1994 Ears/Nose/Throat oral cavity/pharynx/larynx Overall: oral mucosa clear 11/22/2016 None Full Exam - General 1994 Ears/Nose/Throat oral cavity/pharynx/larynx Overall: oropharyngeal mucosa clear 11/22/2016 None Full Exam - General 1994 Ears/Nose/Throat oral cavity/pharynx/larynx Overall: hypopharynx benign 11/22/2016 None Full Exam - General 1994 Ears/Nose/Throat oral cavity/pharynx/larynx Overall: no masses 11/22/2016 None Full Exam - General 1994 Respiratory auscultation Overall: breath sounds clear bilaterally 11/22/2016 None Full Exam - General 1994 Respiratory respiratory effort/rhythm Overall: no retractions 11/22/2016 None Full Exam - General 1994 Respiratory respiratory effort/rhythm Overall: normal rate 11/22/2016 None Full Exam - General 1994 Cardiovascular extremities Overall: no clubbing 11/22/2016 None Full Exam - General 1994 Cardiovascular auscultation of heart Overall: regular rate 11/22/2016 None Full Exam - General 1994 Cardiovascular auscultation of heart Overall: normal heart sounds 11/22/2016 None Full Exam - General 1994 Abdomen abdominal exam Overall: no tenderness 11/22/2016 None Full Exam - General 1994 Abdomen abdominal exam Overall: normal bowel sounds 11/22/2016 None Full Exam - General 1994 Lymphatic neck nodes Overall: anterior cervical chain benign 11/22/2016 None Full Exam - General 1994 Lymphatic neck nodes Overall: posterior cervical chain benign 11/22/2016 None Full Exam - General 1994 Musculoskeletal spine, ribs and pelvis Overall: spine benign 11/22/2016 None Full Exam - General 1994 Musculoskeletal spine, ribs and pelvis Overall: sacroiliac joint benign 11/22/2016 None Full Exam - General 1994 Musculoskeletal spine, ribs and pelvis Overall: good posture 11/22/2016 None Full Exam - General 1994 Musculoskeletal head and neck Overall: head atraumatic 11/22/2016 None Full Exam - General 1994 Musculoskeletal head and neck Overall: cervical spine benign 11/22/2016 None Full Exam - General 1994 Integument inspection of skin Pigmentation: hyperpigmentation 11/22/2016 small 0.5 x 0.3 cm lesion on inner part of foot near calcaneous on right Full Exam - General 1994 Neurologic deep tendon reflexes Overall: deep tendon reflexes intact 11/22/2016 None Full Exam - General 1994 Neurologic cranial nerves Overall: crainial nerves 2 - 12 grossly intact 11/22/2016 None Full Exam - General 1994 Psychiatric orientation/consciousness Overall: oriented to person, place and time 11/22/2016 None Full Exam - General 1994 Psychiatric mood and affect Overall: normal mood and affect 11/22/2016 None Full Exam - General 1994 Constitutional general appearance Development: well developed 03/01/2016 None Full Exam - General 1994 Constitutional general appearance Development: appears stated age 0603/01/2016 None Full Exam - General 1994 Constitutional general appearance Hygiene/Attention to Grooming: good hygiene 03/01/2016 None Full Exam - General 1994 Eyes conjunctiva /eyelids Overall: conjunctiva clear 03/01/2016 None Full Exam - General 1994 Eyes conjunctiva /eyelids Overall: cornea clear 03/01/2016 None Full Exam - General 1994 Eyes conjunctiva /eyelids Overall: eyelids normal 03/01/2016 None Full Exam - General 1994 Ears/Nose/Throat otoscopic exam Overall: tympanic membranes clear 03/01/2016 None Full Exam - General 1994 Ears/Nose/Throat lips/teeth/gingiva Overall: benign lips 03/01/2016 None Full Exam - General 1994 Ears/Nose/Throat lips/teeth/gingiva Overall: normal dentition 03/01/2016 None Full Exam - General 1994 Ears/Nose/Throat oral cavity/pharynx/larynx Overall: oral mucosa clear 03/01/2016 None Full Exam - General 1994 Ears/Nose/Throat oral cavity/pharynx/larynx Overall: oropharyngeal mucosa clear 03/01/2016 None Full Exam - General 1994 Respiratory auscultation Overall: breath sounds clear bilaterally 03/01/2016 None Full Exam - General 1994 Respiratory respiratory effort/rhythm Overall: no retractions 03/01/2016 None Full Exam - General 1994 Respiratory respiratory effort/rhythm Overall: normal rate 03/01/2016 None Full Exam - General 1994 Musculoskeletal spine, ribs and pelvis Overall: good posture 03/01/2016 None Full Exam - General 1994 Musculoskeletal head and neck Overall: head atraumatic 03/01/2016 None Full Exam - General 1994 Integument inspection of skin Overall: no rash, lesions 03/01/2016 None Full Exam - General 1994 Neurologic cranial nerves Overall: crainial nerves 2 - 12 grossly intact 03/01/2016 None Full Exam - General 1994 Psychiatric orientation/consciousness Overall: oriented to person, place and time 03/01/2016 None Full Exam - General 1994 Psychiatric mood and affect Overall: normal mood and affect 03/01/2016 None Full Exam - General 1994 Psychiatric appearance Overall: well-groomed, good eye contact 03/01/2016 None Full Exam - General 1994 Psychiatric speech Overall: normal quality, no aphasia 03/01/2016 None Full Exam - General 1994 Psychiatric speech Overall: normal quality, quantity, rate 03/01/2016 None Full Exam - General 1994 Ears/Nose/Throat otoscopic exam Overall: external auditory canals clear 03/01/2016 None Full Exam - General 1994 Cardiovascular auscultation of heart Rhythm: irregularly irregular rhythm 03/01/2016 None Full Exam - General 1994 Cardiovascular auscultation of heart Rate: regular rate 03/01/2016 None Full Exam - General 1994 Cardiovascular extremities Overall: no clubbing 03/01/2016 None Full Exam - General 1994 Constitutional general appearance Development: well developed 02/16/2016 None Full Exam - General 1994 Constitutional general appearance Development: appears stated age 0602/16/2016 None Full Exam - General 1994 Constitutional general appearance Hygiene/Attention to Grooming: good hygiene 02/16/2016 None Full Exam - General 1994 Eyes conjunctiva /eyelids Overall: conjunctiva clear 02/16/2016 None Full Exam - General 1994 Eyes conjunctiva /eyelids Overall: cornea clear 02/16/2016 None Full Exam - General 1994 Eyes conjunctiva /eyelids Overall: eyelids normal 02/16/2016 None Full Exam - General 1994 Ears/Nose/Throat otoscopic exam Overall: external auditory canals clear 02/16/2016 None Full Exam - General 1994 Ears/Nose/Throat otoscopic exam Overall: tympanic membranes clear 02/16/2016 None Full Exam - General 1994 Ears/Nose/Throat lips/teeth/gingiva Overall: benign lips 02/16/2016 None Full Exam - General 1994 Ears/Nose/Throat lips/teeth/gingiva Overall: normal dentition 02/16/2016 None Full Exam - General 1994 Ears/Nose/Throat oral cavity/pharynx/larynx Overall: oral mucosa clear 02/16/2016 None Full Exam - General 1994 Ears/Nose/Throat oral cavity/pharynx/larynx Overall: oropharyngeal mucosa clear 02/16/2016 None Full Exam - General 1994 Ears/Nose/Throat oral cavity/pharynx/larynx Overall: no masses 02/16/2016 None Full Exam - General 1994 Respiratory auscultation Overall: breath sounds clear bilaterally 02/16/2016 None Full Exam - General 1994 Respiratory respiratory effort/rhythm Overall: no retractions 02/16/2016 None Full Exam - General 1994 Respiratory respiratory effort/rhythm Overall: normal rate 02/16/2016 None Full Exam - General 1994 Musculoskeletal spine, ribs and pelvis Overall: good posture 02/16/2016 None Full Exam - General 1994 Musculoskeletal head and neck Overall: head atraumatic 02/16/2016 None Full Exam - General 1994 Neurologic cranial nerves Overall: crainial nerves 2 - 12 grossly intact 02/16/2016 None Full Exam - General 1994 Psychiatric orientation/consciousness Overall: oriented to person, place and time 02/16/2016 None Full Exam - General 1994 Psychiatric mood and affect Overall: normal mood and affect 02/16/2016 None Full Exam - General 1994 Cardiovascular auscultation of heart Rate: tachycardia 02/16/2016 None Full Exam - General 1994 Cardiovascular auscultation of heart Rhythm: irregularly irregular rhythm 02/16/2016 None Full Exam - General 1994 Integument inspection of skin Overall: no rash, lesions 02/16/2016 None Full Exam - General 1994 Neurologic gait Overall: no ataxia, no unsteadiness 02/16/2016 None Full Exam - General 1994 Psychiatric appearance Overall: well-groomed, good eye contact 02/16/2016 None Full Exam - General 1994 Psychiatric speech Overall: normal quality, no aphasia 02/16/2016 None Full Exam - General 1994 Psychiatric speech Overall: normal quality, quantity, rate 02/16/2016 None Full Exam - General 1994 Constitutional general appearance Development: well developed 11/17/2015 None Full Exam - General 1994 Constitutional general appearance Development: appears stated age 0311/17/2015 None Full Exam - General 1994 Constitutional general appearance Hygiene/Attention to Grooming: good hygiene 11/17/2015 None Full Exam - General 1994 Eyes conjunctiva /eyelids Overall: conjunctiva clear 11/17/2015 None Full Exam - General 1994 Eyes conjunctiva /eyelids Overall: cornea clear 11/17/2015 None Full Exam - General 1994 Eyes conjunctiva /eyelids Overall: eyelids normal 11/17/2015 None Full Exam - General 1994 Eyes pupils and irises Overall: pupils equal, round, reactive to light and accomodation 11/17/2015 None Full Exam - General 1994 Ears/Nose/Throat otoscopic exam Overall: external auditory canals clear 11/17/2015 None Full Exam - General 1994 Ears/Nose/Throat otoscopic exam Overall: tympanic membranes clear 11/17/2015 None Full Exam - General 1994 Ears/Nose/Throat lips/teeth/gingiva Overall: benign lips 11/17/2015 None Full Exam - General 1994 Ears/Nose/Throat lips/teeth/gingiva Overall: normal dentition 11/17/2015 None Full Exam - General 1994 Ears/Nose/Throat oral cavity/pharynx/larynx Overall: oral mucosa clear 11/17/2015 None Full Exam - General 1994 Ears/Nose/Throat oral cavity/pharynx/larynx Overall: oropharyngeal mucosa clear 11/17/2015 None Full Exam - General 1994 Ears/Nose/Throat oral cavity/pharynx/larynx Overall: hypopharynx benign 11/17/2015 None Full Exam - General 1994 Ears/Nose/Throat oral cavity/pharynx/larynx Overall: no masses 11/17/2015 None Full Exam - General 1994 Respiratory auscultation Overall: breath sounds clear bilaterally 11/17/2015 None Full Exam - General 1994 Respiratory respiratory effort/rhythm Overall: no retractions 11/17/2015 None Full Exam - General 1994 Respiratory respiratory effort/rhythm Overall: normal rate 11/17/2015 None Full Exam - General 1994 Cardiovascular extremities Overall: no clubbing 11/17/2015 None Full Exam - General 1994 Cardiovascular auscultation of heart Overall: regular rate 11/17/2015 None Full Exam - General 1994 Cardiovascular auscultation of heart Overall: normal heart sounds 11/17/2015 None Full Exam - General 1994 Abdomen abdominal exam Overall: no tenderness 11/17/2015 None Full Exam - General 1994 Abdomen abdominal exam Overall: normal bowel sounds 11/17/2015 None Full Exam - General 1994 Lymphatic neck nodes Overall: anterior cervical chain benign 11/17/2015 None Full Exam - General 1994 Lymphatic neck nodes Overall: posterior cervical chain benign 11/17/2015 None Full Exam - General 1994 Musculoskeletal spine, ribs and pelvis Overall: spine benign 11/17/2015 None Full Exam - General 1994 Musculoskeletal spine, ribs and pelvis Overall: sacroiliac joint benign 11/17/2015 None Full Exam - General 1994 Musculoskeletal spine, ribs and pelvis Overall: good posture 11/17/2015 None Full Exam - General 1994 Musculoskeletal head and neck Overall: head atraumatic 11/17/2015 None Full Exam - General 1994 Musculoskeletal head and neck Overall: cervical spine benign 11/17/2015 None Full Exam - General 1994 Neurologic deep tendon reflexes Overall: deep tendon reflexes intact 11/17/2015 None Full Exam - General 1994 Neurologic cranial nerves Overall: crainial nerves 2 - 12 grossly intact 11/17/2015 None Full Exam - General 1994 Psychiatric orientation/consciousness Overall: oriented to person, place and time 11/17/2015 None Full Exam - General 1994 Psychiatric mood and affect Overall: normal mood and affect 11/17/2015 None Full Exam - General 1994 Integument inspection of skin Pigmentation: hyperpigmentation 11/17/2015 small 0.5 x 0.3 cm lesion on inner part of foot near calcaneous on right Procedures No Procedures data Vital Signs Date Vital 12/17/2018 Blood Pressure 1: 130/76 Code : 8480-6 BMI: 24.5 Code : 05188-2 Heart Rate 1 : 62 bpm Height: 6'1" SpO2: 98% Weight: 186 lbs 11/28/2017 Blood Pressure 1: 138/80 Code : 8480-6 BMI: 24.5 Code : 03827-1 Heart Rate 1 : 55 bpm Height: 6'1" SpO2: 98% Weight: 186 lbs 05/22/2017 Blood Pressure 1: 122/76 Code : 8480-6 BMI: 23.7 Code : 15909-1 Heart Rate 1 : 64 bpm Height: 6'1" SpO2: 98% Weight: 180 lbs 11/30/2016 Blood Pressure 1: 130/76 Code : 8480-6 BMI: 17.4 Code : 33068-7 Heart Rate 1 : 79 bpm Height: 6'1" SpO2: 99% Temperature: 37.4 (C) / 99.3 (F) Weight: 132 lbs 11/22/2016 Blood Pressure 1: 120/80 Code : 8480-6 BMI: 23.6 Code : 19845-5 Heart Rate 1 : 50 bpm Height: 6'1" Weight: 179 lbs 03/01/2016 Blood Pressure 1: 110/78 Code : 8480-6 BMI: 23.2 Code : 94984-3 Heart Rate 1 : 72 bpm Height: 6'1" SpO2: 99% Weight: 176 lbs 02/16/2016 Blood Pressure 1: 130/82 Code : 8480-6 BMI: 23.6 Code : 26515-0 Heart Rate 1 : 96 bpm Height: 6'1" SpO2: 99% Weight: 179 lbs 11/17/2015 Blood Pressure 1: 130/82 Code : 8480-6 BMI: 23.6 Code : 21211-3 Heart Rate 1 : 53 bpm Height: 6'1" SpO2: 98% Weight: 179 lbs Functional Status No Functional Status data History of Present Illness Symptom Name Status Result Effective Date Notes Lifestyle regular seatbelt use 12/17/2018 None Lifestyle normal sleep patterns 12/17/2018 with taking melatonin Lifestyle normal amount of stress 12/17/2018 None Sexual Activity experiences sexual satisfaction 12/17/2018 None Sexual Activity is monogamous 12/17/2018 None Nutrition and Exercise normal weight 12/17/2018 None Nutrition and Exercise balanced nutrition 12/17/2018 None Nutrition and Exercise moderate exercise 12/17/2018 None Cardiovascular Risk Factors family history of cardiovascular disease 12/17/2018 None well man exam (40-65 years) Lifestyle regular seatbelt use 11/28/2017 None well man exam (40-65 years) Lifestyle normal sleep patterns 11/28/2017 with taking melatonin well man exam (40-65 years) Nutrition and Exercise normal weight 11/28/2017 None well man exam (40-65 years) Nutrition and Exercise balanced nutrition 11/28/2017 None well man exam (40-65 years) Nutrition and Exercise moderate exercise 11/28/2017 None well man exam (40-65 years) Urinary complaints post-void dribbling 11/28/2017 None well man exam (40-65 years) Lifestyle normal amount of stress 11/28/2017 None well man exam (40-65 years) Cardiovascular Risk Factors family history of cardiovascular disease None well man exam (40-65 years) Sexual Activity experiences sexual satisfaction 11/28/2017 None well man exam (40-65 years) Sexual Activity is monogamous 11/28/2017 None sinus congestion Location frontal sinuses 05/22/2017 None sinus congestion Quality fullness 05/22/2017 None sinus congestion Quality pressure 05/22/2017 None sinus congestion Onset and Resolution sudden in onset 05/22/2017 None sinus congestion Onset of Symptom 1 weeks ago 05/22/2017 None sinus congestion Frequency of Episodes daily 05/22/2017 None sinus congestion Pertinent Findings cough 05/22/2017 None chest congestion Quality constant 05/22/2017 None chest congestion Onset and Resolution sudden in onset 05/22/2017 None chest congestion Onset of Symptom 1 weeks ago 05/22/2017 None chest congestion Pertinent Findings cough 05/22/2017 None chest congestion Pertinent Findings sinus congestion 05/22/2017 None sinus congestion Location on both sides 11/30/2016 None sinus congestion Quality constant 11/30/2016 None sinus congestion Quality fullness 11/30/2016 None sinus congestion Onset and Resolution sudden in onset 11/30/2016 None sinus congestion Onset of Symptom 8 days ago 11/30/2016 None sinus congestion Frequency of Episodes daily 11/30/2016 None sinus congestion Pertinent Findings cough 11/30/2016 None sinus congestion Pertinent Findings decreased energy level 11/30/2016 None sinus congestion Pertinent Findings fever 11/30/2016 None earache Location both ears 11/30/2016 None earache Onset and Resolution sudden in onset 11/30/2016 None earache Onset of Symptom 8 days ago 11/30/2016 None earache Frequency of Episodes daily 11/30/2016 None well man exam (40-65 years) Lifestyle regular seatbelt use 11/22/2016 None well man exam (40-65 years) Lifestyle normal sleep patterns 11/22/2016 with taking melatonin well man exam (40-65 years) Lifestyle abnormal amount of stress 11/22/2016 -- improved well man exam (40-65 years) Nutrition and Exercise normal weight 11/22/2016 None well man exam (40-65 years) Nutrition and Exercise balanced nutrition 11/22/2016 None well man exam (40-65 years) Nutrition and Exercise moderate exercise 11/22/2016 None Hospital Follow Up _ cardiac disease 03/01/2016 None arrhythmia Quality acute 03/01/2016 None arrhythmia Quality chronic 03/01/2016 None arrhythmia Quality intermittent 03/01/2016 None arrhythmia Quality irregular beats 03/01/2016 None arrhythmia Quality tachycardia 03/01/2016 None arrhythmia Onset and Resolution sudden in onset 03/01/2016 None arrhythmia Onset of Symptom during adulthood 03/01/2016 None arrhythmia Limitation on Activities moderately limits activities 03/01/2016 None arrhythmia Pertinent Findings Denies fever 03/01/2016 None arrhythmia Pertinent Findings Denies dyspnea 03/01/2016 None palpitations Quality intermittent 02/16/2016 None palpitations Quality skipped beats 02/16/2016 None palpitations Onset and Resolution sudden in onset 02/16/2016 None palpitations Onset of Symptom 1 days ago 02/16/2016 None mole check Location-Major in a generalized area 11/17/2015 None mole check Location-Major on the back 11/17/2015 None mole check Location-Trunk on the left lower back 11/17/2015 None mole check Color brown 11/17/2015 None mole check Changing Moles not changing 11/17/2015 None edema Onset and Resolution sudden in onset 11/17/2015 None edema Onset of Symptom 1 weeks ago 11/17/2015 None Advance Directives No Advance Directive data Encounters Encounter Performer Location Codes Date [phone]) [id number] EST. PATIENT, LEVEL IV Diagnosis: Encounter for general adult medical examination without abnormal findings[ICD10: Z00.00] [facility] CPT-4: 99946 12/17/2018 ([id number]) PREV VISIT EST AGE 40-64 Diagnosis: Encounter for general adult medical examination without abnormal findings[ICD10: Z00.00] Amber Espinoza MD, [facility] CPT-4: 98009 11/28/2017 31538 EST. PATIENT, LEVEL IV Diagnosis: Other acute sinusitis[ICD10: J01.80] Diagnosis: Other allergic rhinitis[ICD10: J30.89] Saima Espinoza MD, [facility] CPT-4: 41592 05/22/2017 96662 EST. PATIENT, LEVEL III Diagnosis: Other malaise[ICD10: R53.81] Diagnosis: Acute laryngopharyngitis[ICD10: J06.0] Saima Espinoza MD, [facility] CPT-4: 50576 11/30/2016 ([id number]) PREV VISIT EST AGE 40-64 Diagnosis: Encounter for general adult medical examination without abnormal findings[ICD10: Z00.00] Amber Espinoza MD, [facility] CPT-4: 30151 11/22/2016 14611 EST. PATIENT, LEVEL IV Diagnosis: Paroxysmal atrial fibrillation[ICD10: I48.0] [facility] CPT-4: 24687 03/01/2016 44885 EST. PATIENT, LEVEL III Diagnosis: Other specified cardiac arrhythmias[ICD10: I49.8] Diagnosis: Palpitations[ICD10: R00.2] Diagnosis: Myalgia[ICD10: M79.1] [facility] CPT-4: 01159 02/16/2016 ([id number]) PREV VISIT NEW AGE 40-64 Diagnosis: Encounter for general adult medical examination without abnormal findings[ICD10: Z00.00] [facility] CPT-4: 06288 11/17/2015 Plan of Care Planned Activity Notes Codes Status Date Visit Plan: Well Adult - pt was counseled about diet, exercise, and encouraged to follow a heart healthy diet and increase activity level. The patient was instructed to RTC yearly for well adult exams and PRN for acute illnesses. The pt was also instructed to have yearly labs for check of cholesterol, thyroid, chem panel, CBC, and renal functioning. 12/17/2018 Patient Education: Patient Medication Summary Completed 12/17/2018 Appointment: Amber Espinoza WPtel: [phone] [facility] (15 min) Moderate 12/03/2018 Visit Plan: Well Adult - pt was counseled about diet, exercise, and encouraged to follow a heart healthy diet and increase activity level. The patient was instructed to RTC yearly for well adult exams and PRN for acute illnesses. The pt was also instructed to have yearly labs for check of cholesterol, thyroid, chem panel, CBC, and renal functioning. 11/28/2017 Appointment: Amber Espinoza WPtel: [phone] [facility] Physical 11/28/2017 Patient Education: Patient Medication Summary Completed 11/28/2017 Visit Plan: Sinusitis - Pt has acute infection - pain in face, maxillary region, Pt informed to use decongestant, RX given to patient, sinus rinses also recommended. Call if symptoms do not show improvement. Allergies - chronic - recommended pt to use allergy medication as prescribed. Pt has been counseled as to the appropriate use of the medication. Pt to call if allergy symptoms are not controlled with the medication. If using nasal spray , instructions as follows: Nasal spray- use twice daily, one spray per nostril twice daily, after 30 minutes, rinse out nose with saline spray.. Use opposite hand per nostril to spray in the nasal steroid allergy spray. 05/22/2017 Appointment: Saima Browning WPtel: [phone] [facility] (15 min) Moderate 05/22/2017 Patient Education: Patient Medication Summary Completed 05/22/2017 Visit Plan: URI - Pt advised to increase fluids, vitamin C. Discussed natural and expected course of this diagnosis and need to alert me if symptoms do not follow expected course, or if any worse. RX sent to patient' s pharmacy. 11/30/2016 Appointment: Saima Browning WPtel: [phone] [facility] (15 min) Moderate 11/30/2016 Patient Education: Patient Medication Summary Completed 11/30/2016 Visit Plan: Well Adult - pt was counseled about diet, exercise, and encouraged to follow a heart healthy diet and increase activity level. The patient was instructed to RTC yearly for well adult exams and PRN for acute illnesses. The pt was also instructed to have yearly labs for check of cholesterol, thyroid, chem panel, CBC, and renal functioning. 11/22/2016 Appointment: [phone] [place] (15 min) Moderate 11/22/2016 Patient Education: Patient Medication Summary Completed 11/22/2016 Visit Plan: Hospital follow up - This was a follow up appointment from the patient's hospitalization during which time Dr. Espinoza formulated the assessment and plan for the follow up on this patient's medical condition. Pt is here for a follow up appointment after being in the hospital with A-fib and Pneumonia - pt is scheduled for an ablation by Dr. Garzon. Pt states that he is supposed to get labs done prior to his appointment. Will order labs, will fax to: [phone] - [facility] cardiology - attention Maribeth. phone [phone] - attention - Dr. Garzon. Pt is to notify clinic with any questions or concerns. 03/01/2016 Appointment: Janene Rojas [facility]Ptel[facility] [place] (15 min) Moderate 03/01/2016 Patient Education: Patient Medication Summary Completed 03/01/2016 Referral: Mildred Johnson [address] [facility] D [id number] we got him in to day Completed 02/17/2016 Visit Plan: Arrhythmia - pt states that he has noticed that very little exertion will cause his heart rate to spike. 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 Pt states that he gets flushed when this happens. Will order EKG, labs, and Holter monitor. Will refer to Cardiology. Myalgia - pt had a tick bite 2 days ago, and has had myalgias, malaise, fatigue - will check labs and tick panel, pending results will send RX. 02/16/2016 Patient Education: Patient Medication Summary Completed 02/16/2016 Visit Plan: Well Adult - pt was counseled about diet, exercise, and encouraged to follow a heart healthy diet and increase activity level. The patient was instructed to RTC yearly for well adult exams and PRN for acute illnesses. The pt was also instructed to have yearly labs for check of cholesterol, thyroid, chem panel, CBC, and renal functioning. 11/17/2015 Appointment: Luis Espinozay WPtel: [phone] [facility] [place] (S) New Patient 11/17/2015 Patient Education: Patient Medication Summary Completed 11/17/2015 Appointment: (S) New Patient 11/02/2015 Appointment: Alexis Amber WPtel: [phone] [facility] [place] (S) New Patient 09/21/2015 Referral: Mildred Johnson [address] Referral Completed Instructions Comment . Well Adult - pt was counseled about diet, exercise, and encouraged to follow a heart healthy diet and increase activity level. The patient was instructed to RTC yearly for well adult exams and PRN for acute illnesses. The pt was also instructed to have yearly labs for check of cholesterol, thyroid, chem panel, CBC, and renal functioning. . Hospital follow up - This was a follow up appointment from the patient's hospitalization during which time Dr. Espinoza formulated the assessment and plan for the follow up on this patient's medical condition. Pt is here for a follow up appointment after being in the hospital with A-fib and Pneumonia - pt is scheduled for an ablation by Dr. Garzon. Pt states that he is supposed to get labs done prior to his appointment. Will order labs, will fax to: [phone] - [facility] cardiology - attention Maribeth. phone - attention - Dr. Garzon. Pt is to notify clinic with any questions or concerns. . Well Adult - pt was counseled about diet, exercise, and encouraged to follow a heart healthy diet and increase activity level. The patient was instructed to RTC yearly for well adult exams and PRN for acute illnesses. The pt was also instructed to have yearly labs for check of cholesterol, thyroid, chem panel, CBC, and renal functioning. . Well Adult - pt was counseled about diet, exercise, and encouraged to follow a heart healthy diet and increase activity level. The patient was instructed to RTC yearly for well adult exams and PRN for acute illnesses. The pt was also instructed to have yearly labs for check of cholesterol, thyroid, chem panel, CBC, and renal functioning. . Arrhythmia - pt states that he has noticed that very little exertion will cause his heart rate to spike. 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 Pt states that he gets flushed when this happens. Will order EKG, labs, and Holter monitor. Will refer to Cardiology. Myalgia - pt had a tick bite 2 days ago, and has had myalgias, malaise, fatigue - will check labs and tick panel, pending results will send RX. zantac 150mg at night . Well Adult - pt was counseled about diet, exercise, and encouraged to follow a heart healthy diet and increase activity level. The patient was instructed to RTC yearly for well adult exams and PRN for acute illnesses. The pt was also instructed to have yearly labs for check of cholesterol, thyroid, chem panel, CBC, and renal functioning. . URI - Pt advised to increase fluids, vitamin C. Discussed natural and expected course of this diagnosis and need to alert me if symptoms do not follow expected course, or if any worse. RX sent to patient's pharmacy. . Sinusitis - Pt has acute infection - pain in face, maxillary region, Pt informed to use decongestant, RX given to patient, sinus rinses also recommended. Call if symptoms do not show improvement. Allergies - chronic - recommended pt to use allergy medication as prescribed. Pt has been counseled as to the appropriate use of the medication. Pt to call if allergy symptoms are not controlled with the medication. If using nasal spray, instructions as follows: Nasal spray- use twice daily, one spray per nostril twice daily, after 30 minutes, rinse out nose with saline spray.. Use opposite hand per nostril to spray in the nasal steroid allergy spray.
--- OUTSIDE RECORDS SUMMARY | 2018-12-27 18:18 | XMS REPORT | Continuity of Care Document ---
Author Organization Unknown Address Unknown Allergies Active Description Code Type Severity Reaction Onset Reported/Identified Relationship to Patient Clinical Status Yes Sulfa (Sulfonamide Antibiotics) [id number] Drug Allergy Unknown N/A 2015 Medications There is no data. Problems Date Dx Coded Attending Type Code Diagnosis Diagnosed By 01/20/2016 JHONNY SALGADO, KLEVER Swain Ot Z01.818 ENCOUNTER FOR OTHER PREPROCEDURAL EXAMIN 01/20/2016 KLEVER BARRY MD Ot Z12.11 ENCOUNTER FOR SCREENING FOR MALIGNANT NE 01/21/2016 KLEVER BARRY MD Ot Z12.11 ENCOUNTER FOR SCREENING FOR MALIGNANT NE 01/25/2016 KLEVER BARRY MD Ot Z12.11 ENCOUNTER FOR SCREENING FOR MALIGNANT NE 02/17/2016 NEHEMIAH CASTELAN HAIRCUTTER Ot R00.0 TACHYCARDIA, UNSPECIFIED 02/17/2016 NEHEMIAH CASTELAN HAIRCUTTER Ot R00.2 PALPITATIONS 02/17/2016 NEHEMIAH CASTELAN HAIRCUTTER Ot R00.0 TACHYCARDIA, UNSPECIFIED 02/17/2016 NEHEMIAH CASTELAN HAIRCUTTER Ot R00.2 PALPITATIONS 02/20/2016 NEHEMIAH CASTELAN HAIRCUTTER Ot R00.0 TACHYCARDIA, UNSPECIFIED 02/20/2016 NEHEMIAH CASTELAN HAIRCUTTER Ot R00.2 PALPITATIONS 02/23/2016 JOSEPH PALENCIA MD Ot I48.91 UNSPECIFIED ATRIAL FIBRILLATION 02/23/2016 JOSEPH PALENCIA MD Ot I48.92 UNSPECIFIED ATRIAL FLUTTER 02/23/2016 JOSEPH PALENCIA MD Ot J18.9 PNEUMONIA, UNSPECIFIED ORGANISM 02/23/2016 TALHA SALGADO, JOSEPH Luther Ot R51 HEADACHE 02/23/2016 JOSEPH PALENCIA MD Ot I48.91 UNSPECIFIED ATRIAL FIBRILLATION 02/23/2016 JOSEPH PALENCIA MD Ot I48.92 UNSPECIFIED ATRIAL FLUTTER 02/23/2016 JOSEPH PALENCIA MD Ot J18.9 PNEUMONIA, UNSPECIFIED ORGANISM 02/23/2016 JOSEPH PALENCIA MD A Ot R51 HEADACHE 02/25/2016 JOSEPH PALENCIA MD A Ot E87.6 HYPOKALEMIA 02/25/2016 JOSEPH PALENCIA MD A Ot G47.00 INSOMNIA, UNSPECIFIED 02/25/2016 JOSEPH PALENCIA MD A Ot I48.91 UNSPECIFIED ATRIAL FIBRILLATION 02/25/2016 JOSEPH PALENCIA MD A Ot I48.92 UNSPECIFIED ATRIAL FLUTTER 02/25/2016 JOSEPH PALENCIA MD Ot J18.9 PNEUMONIA, UNSPECIFIED ORGANISM 02/25/2016 JOSEPH PALENCIA MD A Ot K59.00 CONSTIPATION, UNSPECIFIED 02/25/2016 JOSEPH PALENCIA MD A Ot R51 HEADACHE 02/28/2016 NEHEMIAH CASTELAN HAIRCUTTER Ot R00.0 TACHYCARDIA, UNSPECIFIED 02/28/2016 NEHEMIAH CASTELAN HAIRCUTTER Ot R00.2 PALPITATIONS 04/19/2016 GISELLA RUTH COMMODITY SUPERVISOR Ot D64.9 ANEMIA, UNSPECIFIED 04/19/2016 GISELLA RUTH COMMODITY SUPERVISOR Ot D69.6 THROMBOCYTOPENIA, UNSPECIFIED 04/25/2016 JOSEPH PALENCIA MD Ot I48.91 UNSPECIFIED ATRIAL FIBRILLATION 04/25/2016 JOSEPH PALENCIA MD A Ot R06.83 SNORING 04/27/2016 JOSEPH PALENCIA MD A Ot I48.91 UNSPECIFIED ATRIAL FIBRILLATION 04/27/2016 JOSEPH PALENCIA MD A Ot R06.83 SNORING 06/08/2016 NEHEMIAH CASTELAN HAIRCUTTER Ot R00.0 TACHYCARDIA, UNSPECIFIED 06/08/2016 NEHEMIAH CASTELAN HAIRCUTTER Ot R00.2 PALPITATIONS 12/04/2016 NEHEMIAH CASTELAN HAIRCUTTER Ot R00.0 TACHYCARDIA, UNSPECIFIED 12/04/2016 NEHEMIAH CASTELAN HAIRCUTTER Ot R00.2 PALPITATIONS 12/04/2016 JOSEPH PALENCIA MD Ot J18.9 PNEUMONIA, UNSPECIFIED ORGANISM 12/04/2016 JOSEPH PALENCIA MD A Ot R79.82 ELEVATED C-REACTIVE PROTEIN (CRP) 12/04/2016 GISELLA RUTH COMMODITY SUPERVISOR Ot D64.9 ANEMIA, UNSPECIFIED 12/04/2016 GISELLA RUTH COMMODITY SUPERVISOR Ot D69.6 THROMBOCYTOPENIA, UNSPECIFIED Procedures There is no data. Results Test Result Range Blood CBC with ordered manual differential panel - 04/18/16 08:25 Blood leukocytes automated count (number/volume) 4.0 10*3/uL 4.3-11.0 Blood erythrocytes automated count (number/volume) 4.51 10*6/uL 4.35-5.85 Venous blood hemoglobin measurement (mass/volume) 14.0 g/dL 13.3-17.7 Blood hematocrit (volume fraction) 40 % 40-54 Automated erythrocyte mean corpuscular volume 88 [foz_us] 80-99 Automated erythrocyte mean corpuscular hemoglobin (mass per erythrocyte) 31 pg 25-34 Automated erythrocyte mean corpuscular hemoglobin concentration measurement ( mass/volume) 35 g/dL 32-36 Automated erythrocyte distribution width ratio 13.2 % 10.0-14.5 Automated blood platelet count (count/volume) 234 10*3/uL 130-400 Automated blood platelet mean volume measurement 10.2 [foz_us] 7.4-10.4 Automated blood neutrophils/100 leukocytes 49 % 42-75 Automated blood lymphocytes/100 leukocytes 38 % 12-44 Blood monocytes/100 leukocytes 6 % NRG Automated blood eosinophils/100 leukocytes 4 % 0-10 Automated blood basophils/100 leukocytes 1 % 0-10 Blood neutrophils automated count (number/volume) 2.0 10*3 1.8-7.8 Blood lymphocytes automated count (number/volume) 1.5 10*3 1.0-4.0 Blood monocytes automated count (number/volume) 0.3 10*3 0.0-1.0 Automated eosinophil count 0.2 10*3/uL 0.0-0.3 Automated blood basophil count (count/volume) 0.1 10*3/uL 0.0-0.1 Manual blood segmented neutrophils/100 leukocytes 49 % NRG Blood band neutrophils/100 leukocytes 0 % NRG Manual blood lymphocytes/100 leukocytes 39 % NRG Manual eosinophils/100 leukocytes in nose 2 % NRG Manual blood basophils/100 leukocytes 1 % NRG Blood lymphocytes variant/100 leukocytes 3 % NRG Blood erythrocyte morphology finding identification NORMAL NRG Automated reticulocyte percentage - 04/18/16 08:25 Blood reticulocytes count (number/volume) 40 10*9/L 24- 90 Blood reticulocytes/100 erythrocytes 0.89 % 0.50-2.40 Encounters ACCT No. Visit Date/Time Discharge Status Pt. Type Provider Facility Loc./Unit Complaint [id number] 04/24/2016 20:40:00 04/25/2016 06:17:00 DIS Outpatient JOSEPH PALENCIA MD [facility] SLEEP AFIB,ARRHYTHMIAS [id number] 04/18/2016 08:17:00 04/18/2016 23:59:59 CLS Outpatient GISELLA RUTH [facility] LAB LOW PLATELETS [id number] 02/28/2016 10:55:00 02/28/2016 23:59:59 CLS Outpatient JOSEPH PALENCIA MD [facility] LAB PNEUMONIA UNSPECIFIED ORGANISM [id number] 02/20/2016 23:35:00 02/25/2016 12:59:00 DIS Inpatient JOSEPH PALENCIA MD [facility] 4TH PNEUMONIA,SEPSIS, HEADACHE [id number] 02/16/2016 09:43:00 02/16/2016 23:59:59 CLS Outpatient NEHEMIAH CASTELAN APRN [facility] CARD PALPITATIONS, TACHYCARDIA [id number] 01/21/2016 08:21:00 01/21/2016 11:50:00 DIS Outpatient KLEVER BARRY MD [facility] SDC SCREENING [id number] 01/19/2016 05:39:00 01/19/2016 23:59:59 CLS Outpatient KLEVER BARRY MD [facility] PREOP [id number] 12/27/2018 18:09:00 ACT Emergency HAIM COLLAZO MD [facility] ER L HAND LITTLE FINGER INJ 2809 06/15/2017 09:26:25 06/15/2017 23:59:59 CLS Outpatient
--- OUTSIDE RECORDS SUMMARY | 2018-12-27 18:18 | XMS REPORT | CCD ---
Author Author Amber Espinoza Organization Amber Espinoza MD, [facility] Address [address] [place] [address] Phone Care Team Providers Care Taxi Driver Supervisor Name Role Phone PP Unavailable CCM Unavailable Summary Purpose Interface Exchange Insurance Providers Payer name Policy type / Coverage type Covered democrat ID Effective Begin Date Effective End Date [employer] Commercial Insurance [id number] Unknown Family history Father Diagnosis Age At [...] Start Date Stop Date Status Fill Instructions Levaquin 500 mg tablet RxNorm: 414062 1 Tablet(s) PO daily 08/201705/28/2017 Inactive Augmentin 500 mg-125 mg tablet RxNorm: 403641 1 Tablet(s) PO TID 11/30/2016 12/09/2016 Inactive Cartia XT 300 mg capsule,extended release RxNorm: 215843 1 Capsule(s) PO daily 03/02/2016 03/31/2016 Inactive prednisone 20 mg tablet RxNorm: 876220 3 Tablet(s) PO daily 05/201602/21/2016 Inactive Xarelto 20 mg tablet RxNorm: 8899398 1 Tablet(s) PO daily with the evening meal 02/17/2016 02/28/2016 Inactive prednisone 20 mg tablet RxNorm: 226302 3 Tablet(s) PO daily 05/201602/16/2016 Inactive Nexium 20 mg capsule,delayed release RxNorm: 451858 1 Capsule(s) PO BID 02/17/2016 03/17/2016 Inactive Nexium 20 mg capsule,delayed release RxNorm: 574729 1 Capsule(s) PO BID 02/17/2016 02/16/2016 Inactive Xarelto 20 mg tablet RxNorm: 8635780 1 Tablet(s) PO daily with the evening meal 02/17/2016 02/16/2016 Inactive ProAir HFA 90 mcg/actuation aerosol inhaler RxNorm: 9493348 INHALE 2 PUFFS BY MOUTH EVERY 6 HOURS NEEDED 04/27/2015 11/21/2016 Inactive N O T I C E PRESCRIPTION PREVIOUSLY AUTHORIZED BY DOCTOR:ALAINA PETTY ProAir HFA 90 mcg/actuation aerosol inhaler RxNorm: 5852125 1-2 Puff(s) INH Q4 PRN 04/27/2015 04/26/2015 Inactive Vitamin B-12 oral RxNorm: 69108 oral No Start Date Active folic acid oral RxNorm : 4511 oral No Start Date Active Men's Multi-Vitamin tablet RxNorm: 1 Tablet(s) PO daily No Start Date Active Calcium + Vitamin D oral RxNorm: 1607119 oral No Start Date Active Tiffany oral RxNorm: 204517 oral No Start Date Active melatonin oral RxNorm : 6711 oral No Start Date Active Levaquin 750 mg tablet RxNorm: 636425 1 Tablet(s) PO daily No Start Date 11/21/2016 Inactive metoprolol tartrate 50 mg tablet RxNorm: 078659 1 Tablet(s) PO daily No Start Date 11/21/2016 Inactive cefdinir 300 mg capsule RxNorm: 993795 1 Capsule(s) PO BID No Start Date 11/21/2016 Inactive Doxy 100 mg capsule RxNorm: 157578 oral No Start Date 11/21/2016 Inactive Eliquis 5 mg tablet RxNorm: 4917706 1 Tablet(s) PO BID No Start Date 11/21/2016 Inactive Medication Administered No Medication Administered data Immunizations Vaccine Codes Date Status Influenza CVX: 141 08/05/2018 completed SHINGARIX CVX: 121 04/15/2018 completed Zoster CVX: 121 12/07/2017 completed Influenza CVX: 141 03/10/2015 completed Assessments Condition Codes Effective Dates Encounter for general adult medical examination without abnormal findings ICD-10: Z00.00 ICD-9: V70.0 11/28/2017 Other acute sinusitis ICD-10: J01.80 ICD-9: 461.8 [...] Dates Notes well man exam (40-65 years) 11/28/2017 sinus congestion 05/22/2017 sinus congestion 11/30/2016 well man exam (40-65 years) 11/22/2016 Hospital Follow Up 03/01/2016 palpitations 02/16/2016 mole check 11/17/2015 Results Observation Observation Code Item Item Code Result Date Cbc With Differential Ord2 WBC 4.45 K/ul [...] 30.9 pg 12/17/2018 Cbc With Differential Ord2 Bulloch% 7.4 % 12/17/2018 Cbc With Differential Ord2 [...] 1.45 K/ul 12/17/2018 Cbc With Differential Ord2 Bull[place] ABS# 0.3 K/ul 12/17/2018 Cbc With Differential Ord2 Eos ABS# 0.1 K/ul 12/17/2018 Cbc With Differential Ord2 Baso ABS# 0.0 K/ul 12/17/2018 Lipid Ord30 CHOL 207 mg/dL 11/29/2017 [...] 31.4 pg 11/29/2017 Cbc With Differential Ord2 Bulloch% 8.4 % 11/29/2017 Cbc With Differential Ord2 [...] 1.63 K/ul 11/29/2017 Cbc With Differential Ord2 [place] ABS# 0.4 K/ul 11/29/2017 Cbc With Differential Ord2 Eos ABS# 0.1 K/ul 11/29/2017 Cbc With Differential Ord2 Baso ABS# 0.0 K/ul 11/29/2017 Comp Metabolic Iyn274 NA 141 mEq/L 11/29/2017 Comp Metabolic Ync222 K 4.0 mEq/L 11/29/2017 Comp Metabolic Yik244 CL 106 mEq/L 11/29/2017 Comp Metabolic Pen944 CO2 26.0 mEq/L 11/29/2017 Comp Metabolic Mmq856 ANION GAP 13 11/29/2017 Comp Metabolic Rdk942 GLUCOSE 79 mg/dL 11/29/2017 Comp Metabolic Puu569 Creat 1.0 mg/dL 11/29/2017 Comp Metabolic Rpd019 eGFR 89 ml/min/1.73m2 11/29/2017 Comp Metabolic Uzm033 BUN 20 mg/dL 11/29/2017 Comp Metabolic Wpm198 B/C Ratio 21.1 Ratio 11/29/2017 Comp Metabolic Cef491 CALCIUM 9.5 mg/dL 11/29/2017 Comp Metabolic Jhj917 ALK PHOS 67 U/L 11/29/2017 Comp Metabolic Fmp025 AST(SGOT) 26 U/L 11/29/2017 Comp Metabolic Szv700 ALT(SGPT) 25 U/L 11/29/2017 Comp Metabolic Mij602 BILI T 1.2 mg/dL 11/29/2017 Comp Metabolic Cgz066 ALBUMIN 4.2 g/dL 11/29/2017 Comp Metabolic Dgx500 TPRO 6.7 g/dL 11/29/2017 Comp Metabolic Fcs486 GLOB 2.5 g/dL 11/29/2017 Comp Metabolic Mwx197 A/G Ratio 1.7 Ratio 11/29/2017 Comp Metabolic Bsq437 Osmo 283 mOsmo 11/29/2017 Tsh Ord6 TSH (3rd IS) 0.82 uIU/mL 11/29/2017 C A/B FLU 5045283 Influenza A Scr Negative 11/30/2016 C A/B FLU 8778959 Influenza B Scr Negative 11/30/2016 Hepatic Bjs241 ALBUMIN 4.1 g/dL 04/04/2016 Hepatic Ivx337 TPRO 6.7 g/dL 04/04/2016 Hepatic Fty815 GLOB 2.6 g/dL 04/04/2016 Hepatic Boq203 A/G Ratio 1.5 Ratio 04/04/2016 Hepatic Nra163 ALK PHOS 61 U/L 04/04/2016 Hepatic Whd577 ALT(SGPT) 22 U/L 04/04/2016 Hepatic Nyo117 AST(SGOT) 21 U/L 04/04/2016 Hepatic Pes011 BILI T 0.9 mg/dL 04/04/2016 Hepatic Khs797 BILI D 0.2 mg/dL 04/04/2016 Hepatic Hgi921 BILI I 0.7 mg/dL 04/04/2016 Cbc With [...] 31.3 pg 04/04/2016 Cbc With Differential Ord2 Bulloch% 8.5 % 04/04/2016 Cbc With Differential Ord2 [...] 1.47 K/ul 04/04/2016 Cbc With Differential Ord2 Bull[place] ABS# 0.3 K/ul 04/04/2016 Cbc With Differential [...] 30.7 pg 03/01/2016 Cbc With Differential Ord2 Bull[place]% 9.3 % 03/01/2016 Cbc With Differential Ord2 [...] 1.50 K/ul 03/01/2016 Cbc With Differential Ord2 [place] ABS# 0.4 K/ul 03/01/2016 Cbc With Differential [...] D-Lymph 27 % 03/01/2016 Manual Differential Ord52 D-Bulloch 7 % 03/01/2016 Manual Differential Ord52 D-Eos 2 % 03/01/2016 Manual Differential Ord52 D-1 Plt Increased 03/01/2016 Review of Systems System Result Effective Dates Constitutional No recent illness 2017 Constitutional No [...] No Procedures data Vital Signs Date Vital 11/28/2017 Blood Pressure 1: 138/80 Code : 8480-6 BMI: 24.5 Code : 59842-1 Heart Rate 1 : 55 bpm Height: 6'1" SpO2: 98% Weight: 186 lbs 05/22/2017 Blood Pressure 1: 122/76 Code : 8480-6 BMI: 23.7 Code : 65579-0 Heart Rate 1 : 64 bpm Height: 6'1" SpO2: 98% Weight: 180 lbs 11/30/2016 Blood Pressure 1: 130/76 Code : 8480-6 BMI: 17.4 Code : 41912-2 Heart Rate 1 : 79 bpm Height: 6'1" SpO2: 99% Temperature: 37.4 (C) / 99.3 (F) Weight: 132 lbs 11/22/2016 Blood Pressure 1: 120/80 Code : 8480-6 BMI: 23.6 Code : 64103-4 Heart Rate 1 : 50 bpm Height: 6'1" Weight: 179 lbs 03/01/2016 Blood Pressure 1: 110/78 Code : 8480-6 BMI: 23.2 Code : 17739-9 Heart Rate 1 : 72 bpm Height: 6'1" SpO2: 99% Weight: 176 lbs 02/16/2016 Blood Pressure 1: 130/82 Code : 8480-6 BMI: 23.6 Code : 39215-1 Heart Rate 1 : 96 bpm Height: 6'1" SpO2: 99% Weight: 179 lbs 11/17/2015 Blood Pressure 1: 130/82 Code : 8480-6 BMI: 23.6 Code : 08029-3 Heart Rate 1 : 53 bpm Height: 6'1" SpO2: 98% Weight: 179 lbs Functional Status No Functional Status data History of Present Illness Symptom Name Status Result Effective Date Notes well man exam (40-65 years) Lifestyle regular [...] data Encounters Encounter Performer Location Codes Date ([id number]) PREV VISIT EST AGE 40-64 Diagnosis: Encounter for general adult medical examination without abnormal findings[ICD10: Z00.00] [facility] CPT-4: 60306 11/28/2017 26550 EST. PATIENT, LEVEL IV Diagnosis: Other acute sinusitis[ICD10: J01.80] Diagnosis: Other allergic rhinitis[ICD10: J30.89] [facility] CPT-4: 62730 05/22/2017 23708 EST. PATIENT, LEVEL III Diagnosis: Other malaise[ICD10: R53.81] Diagnosis: Acute laryngopharyngitis[ICD10: J06.0] [facility] CPT-4: 69708 11/30/2016 ([id number]) PREV VISIT EST AGE 40-64 Diagnosis: Encounter for general adult medical examination without abnormal findings[ICD10: Z00.00] Amber Espinoza MD, [facility] CPT-4: 66733 11/22/2016 50968 EST. PATIENT, LEVEL IV Diagnosis: Paroxysmal atrial fibrillation[ICD10: I48.0] Saima Espinoza MD [facility] CPT-4: 79359 03/01/2016 19189 EST. PATIENT, LEVEL III Diagnosis: Other specified cardiac arrhythmias[ICD10: I49.8] Diagnosis: Palpitations[ICD10: R00.2] Diagnosis: Myalgia[ICD10: M79.1] Saima Espinoza MD, [facility] CPT-4: 08535 02/16/2016 ([id number]) PREV VISIT NEW AGE 40-64 Diagnosis: Encounter for general adult medical examination without abnormal findings[ICD10: Z00.00] Amber Espinoza MD, [facility] CPT-4: 10014 11/17/2015 Plan of Care Planned Activity Notes Codes Status Date Appointment: Amber Espinoza WPtel: [address] [place], [place] [id number] (15 min) Moderate 12/03/2018 Visit Plan: Well [...] renal functioning. 11/28/2017 Appointment: Amber Espinoza WPtel: [facility] Physical 11/28/2017 Patient Education: Patient Medication [...] allergy spray. 05/22/2017 Appointment: Saima Browning WPtel: [facility]7 [facility] (15 min) Moderate 05/22/2017 Patient Education: Patient Medication Summary Completed 05/22/2017 Visit Plan: URI - Pt advised to increase fluids, vitamin C. Discussed natural and expected course of this diagnosis and need to alert me if symptoms do not follow expected course, or if any worse. RX sent to patient' s pharmacy. 11/30/2016 Appointment: Saima Browning WPtel: [phone] [facility] (15 min) Moderate 11/30/2016 Patient Education: Patient [...] renal functioning. 11/22/2016 Appointment: Amber Espinoza WPtel: [phone] [facility] (15 min) Moderate 11/22/2016 Patient Education: Patient [...] appointment. Will order labs, will fax to: [phone] - [facility] cardiology - attention Maribeth. phone [phone] - attention - Dr. Garzon. Pt is to notify clinic with any questions or concerns. 03/01/2016 Appointment: Janene Rojas WPtel: [phone] [phone] (15 min) Moderate 03/01/2016 Patient Education: Patient Medication Summary Completed 03/01/2016 Referral: Mildred Johnson [address] [facility] we got him in to day Completed [...] panel, CBC, and renal functioning. 11/17/2015 Appointment: Amber Espinoza WPtel: [phone] [facility] [place] (S) New Patient 11/17/2015 Patient Education: Patient Medication Summary Completed 11/17/2015 Appointment: (S) New Patient 11/02/2015 Appointment: Alex[phone] [place] ([place] New Patient 09/21/2015 [facility]: [facility] Johnson [facility] [facility] Referral Completed Instructions Comment . Well Adult [...] appointment. Will order labs, will fax to: [phone] - [facility] cardiology - attention Maribeth. phone [phone] - attention - Dr. Garzon. Pt is [...] tick panel, pending results will send RX. . URI - Pt advised to increase [...]
[2018-12-27] MEDS ORDERED: TETANUS,DIPTH,PERTUSS P/F (BOOSTRIX) 0.5 ML VIAL IM ONE (19:45)
[2018-12-27] MEDS ORDERED: LIDOCAINE 1% INJ 20 ML 20 ML VIAL INJ ONE (20:00)
--- NOTE | 2018-12-27 20:02 | ED Upper Extremity ---
General Chief Complaint: Skin/Wound Problems Stated Complaint: L HAND LITTLE FINGER INJ History of Present Illness Date Seen by Provider: Dec 27, 2018 Time Seen by Provider: 19:55 Initial Comments 53-year-old male presents for a flap injury to his left fifth finger, extending from the proximal phalanx across the PIP to the middle phalanx. Agent reports he was doing yard work with a glove on when it became caught and twisted , causing the laceration. He denies any additional injuries. He is uncertain of his last tetanus vaccine. He is right-hand dominant Onset: just prior to arrival Pain/Injury Location: left 5th finger Method of Injury: twisted Allergies and Home Medications Allergies Coded Allergies: Sulfa (Sulfonamide Antibiotics) (Unverified Allergy, Unknown, 01/21/16) Home Medications Apixaban 5 Mg Tablet, 5 MG PO BID, (Reported) Calcium Carbonate/Vitamin D3 1 Each Tablet, 1 TAB PO HS, (Reported) Cefdinir 300 Mg Capsule, 300 MG PO BID Prescribed by: JOSEPH PALENCIA on 02/25/16 1010 Cephalexin 500 Mg Capsule, 500 MG PO Q8H Prescribed by: YOLANDA SMITH on 12/27/182103 Cyanocobalamin (Vitamin B-12) 1,000 Mcg Tablet, 1,000 MCG PO DAILY, (Reported) Diltiazem HCl 300 Mg Cap.er.24h, 300 MG PO DAILY Prescribed by: JOSEPH PALENCIA on 02/25/16 1010 Doxycycline Hyclate 100 Mg Tablet, 100 MG PO BID@07,17 Prescribed by: JOSEPH PALENCIA on 02/25/16 1010 Fexofenadine HCl 180 Mg Tablet, 180 MG PO DAILY, (Reported) Folic Acid 0.4 Mg Tablet, 0.4 MG PO DAILY, (Reported) L. Acidophilus/Bulgaricus 1 Each Tablet, 1 TAB.CHEW PO AC Prescribed by: JOSEPH PALENCIA on 02/25/16 1010 Levofloxacin 750 Mg Tablet, 750 MG PO DAILY@1100 Prescribed by: JOSEPH PALENCIA on 02/25/16 1010 Melatonin/Pyridoxine HCl (B6) 1 Each Tab.mphase, 10 MG PO HS, (Reported) Metoprolol Succinate 50 Mg Tab.er.24h, 50 MG PO DAILY Prescribed by: JOSEPH PALENCIA on 6/17/16 1010 Multivitamin 1 Each Tablet, 1 TAB PO DAILY, (Reported) Patient Home Medication List Home Medication List Reviewed: Yes Review of Systems Constitutional: no symptoms reported, see HPI Skin: other (laceration left fifth finger) All Other Systems Reviewed Negative Unless Noted: Yes Past Cuxfziw-Icinal-Hddjxg Hx Past Med/Social Hx: Reviewed Nursing Past Med/Soc Hx Patient Social History 2nd Hand Smoke Exposure: No Recent Foreign Travel: No Contact w/Someone Who Travel: No Seasonal Allergies Seasonal Allergies: No Past Medical History Pneumonia Currently Using CPAP: No Currently Using BIPAP: No Atrial Fibrillation Reproductive Disorders: No Sexually Transmitted Disease: No HIV/AIDS: No Loss of Vision: Denies Adverse Reaction/Blood Tranf: No Family Medical History Heart Disease, Cancer, Hypertension, Stroke Physical Exam Vital Signs Capillary Refill : Height, Weight, BMI Height: 6'1.00" Weight: 182lbs. 0.0oz. 82.075097gs; 24.0 BMI Method:Stated General Appearance: WD/WN, no apparent distress Neck: non-tender, full range of motion, supple, normal inspection Cardiovascular: normal peripheral pulses, regular rate, rhythm Respiratory: chest non-tender, lungs clear, normal breath sounds Gastrointestinal: normal bowel sounds, non tender, soft Hand: normal ROM (Resisted Flex/Ext V/V, no instability at PIP or DIP joints ) , Left (fifth finger), laceration, limited ROM (secondary to pain) Neurologic/Tendon: normal sensation, normal motor functions, normal tendon functions Neurologic/Psychiatric: no motor/sensory deficits, alert, normal mood/affect, oriented x 3 Skin: normal color, warm/dry Procedures/Interventions Wound Location: Upper Extremities (left 5th finger) Wound Length (cm): 5 Wound's Depth, Shape: into muscle, flap Wound Explored: no foreign body removed Irrigated w/ Saline (ccs): 500 Betadine Prep?: Yes Anesthesia: 1% Lidocaine Volume Anesthetic (ccs): 6 Suture: Ethlion Suture Size: 5-0 Number of Sutures: 8 Sterile Dressing Applied?: Yes Progress Patient tolerated procedure well, sterile bulky dressing applied. Progress/Results/Core Measures Results/Orders My Orders Orders - YOLANDA SMITH Dipht,Pertuss(Acell),Tet Adult (Boostrix (12/27/18 19:45) Lidocaine 1% Inj 20 Ml (Xylocaine 1% Inj (12/27/18 20:00) Finger(S) (12/27/18 20:09) Rx-Cephalexin Capsule (Rx-Keflex Capsule (12/27/18 21:07) Medications Given in ED Current Medications Medications Dose Ordered Sig/Tc Route Start Time Stop Time Status Last Admin Dose Admin Diphtheria/ Tetanus/Acell Pertussis 0.5 ml ONCE ONCE IM 12/27/18 19:45 12/27/18 19:46 DC 12/27/18 20:01 0.5 ML Lidocaine HCl 20 ml ONCE ONCE INJ 12/27/18 20:00 12/27/18 20:01 DC 12/27/18 20:15 20 ML Diagnostic Imaging Diagonstic Imaging: Xray Plain Films/CT/US/NM/MRI: other (finger) Comments NAME: [facility] REC#: [id number] PT STATUS: REG ER : 1965 PHYSICIAN: YOLANDA SMITH ADMIT DATE: 12/27/18/ER Signed Date of Exam: 12/27/18 FINGER(S) INDICATION: Fifth finger laceration on lawnmower. FINDINGS: There is evidence of a soft tissue injury involving of the left fifth finger but no evidence of underlying fracture or osseous injury. There is no dislocation. The remainder of the left hand demonstrates no acute process. IMPRESSION: 1. Soft tissue injury of the fifth finger without evidence of osseous injury or retained foreign body. Dictated by: Dictated on workstation # [id number] Dict: 12/27/182024 Trans: 12/27/182041 Interpreted by: BEKAH KWAN MD Electronically signed by: BEKAH KWAN MD 12/27/182041 Reviewed: Reviewed by Me Departure Impression Primary Impression: Laceration of left little finger Qualified Codes: S61.217A - Laceration without foreign body of left little finger without damage to nail, initial encounter Disposition: HOME, SELF-CARE Condition: Improved Departure-Patient Inst. Decision time for Depature: 20:30 Referrals: JOSEPH PALENCIA MD (PCP/Family) Primary Care Physician Patient Instructions: Laceration Repair With Stitches (DC) Add. Discharge Instructions: Keep wound clean and dry. Take antibiotics as prescribed. You may remove the dressing on Sunday and shower. After showering clean wound with peroxide and apply dressing. In 2-3 days, you may leave open to air when home and cover when away. Do not submerge finger in standing water (sink of dishes, bathtub, hot tub, cool , gomez etc.). You may shower and clean finger with running water. Ice and elevate left fifth finger for 20 minutes every 2 hours while awake. Alternate between ibuprofen 600 mg and Tylenol 650 mg every 4 hours for pain. Return to emergency department for new injuries or concerns. Return in 7-10 days for suture removal. All discharge instructions reviewed with patient and/or family. Voiced understanding. Scripts Cephalexin (Keflex) 500 Mg Capsule 500 MG PO Q8H, #12 CAP 0 Refills Prov: YOLANDA SMITH 12/27/18 YOLANDA SMITH Dec 27, 2018 20:02
--- NOTE | 2018-12-27 20:30 | Diagnostic Imaging Report ---
INDICATION: Fifth finger laceration on lawnmower. FINDINGS: There is evidence of a soft tissue injury involving of the left fifth finger but no evidence of underlying fracture or osseous injury. There is no dislocation. The remainder of the left hand demonstrates no acute process. IMPRESSION: 1. Soft tissue injury of the fifth finger without evidence of osseous injury or retained foreign body. Dictated by: Dictated on workstation # [id number]
[2018-12-27] MEDS ORDERED: CEPH-507 PO (21:04)
[2018-12-27] MEDS ORDERED: RX-CEPHALEXIN (KEFLEX) 250 MG CAP PPK#4 PO STA (21:07)
[2018-12-27 21:15] VITALS: BP 135/87
== END 2018-12-27 21:15 | disposition home or self-care (01) ==
LOC: EDUNIT# 18:08 → ER 18:09
DX: S61.217A Laceration without foreign body of left little finger without damage to nail, initial encounter (principal); I48.91 Unspecified atrial fibrillation; Z82.49 Family history of ischemic heart disease and other diseases of the circulatory system; Z23 Encounter for immunization; Z88.2 Allergy status to sulfonamides; Z79.01 Long term (current) use of anticoagulants; Z87.01 Personal history of pneumonia (recurrent); W23.1XXA Caught, crushed, jammed, or pinched between stationary objects, initial encounter; Y92.007 Garden or yard of unspecified non-institutional (private) residence as the place of occurrence of the external cause
CPT/HCPCS: 12013; 73140; 90715

== ENCOUNTER → 2023-02-21 | Outpatient (CLI) | payer OTHER ==
[~2023-02-21] MED LIST changes: +CEPH-507 PO; +CYAN-41 PO; -CYAN10006 PO; -FOLI0.4T2 PO; +FOLI0.4T6 PO; +LEVO750T PO; -LEVO750T39 PO; -MELA1TAB20 PO; +MELA1TAB72 PO; -METO-370 PO; +METO50TA7 PO
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
== END ==
LOC: RAD 10:07
PROVIDERS: ATTEND Family Medicine
DX: R07.81 Pleurodynia (principal)
CPT/HCPCS: 71046